=== PATIENT | male | born 1955 | race Caucasian/White ===

== ENCOUNTER 2016-04-18 10:57 | Outpatient (CLI) | payer BC | END 2016-04-18 10:58 | disposition home or self-care (01) | DX: M51.16 Intervertebral disc disorders with radiculopathy, lumbar region (principal); M51.17 Intervertebral disc disorders with radiculopathy, lumbosacral region; M48.06 Spinal stenosis, lumbar region ==

== ENCOUNTER 2016-05-16 08:00 | Outpatient (CLI) | payer BC | END 2016-05-16 08:01 | disposition home or self-care (01) | DX: E78.5 Hyperlipidemia, unspecified (principal); E11.9 Type 2 diabetes mellitus without complications; I10 Essential (primary) hypertension; R74.8 Abnormal levels of other serum enzymes ==

== ENCOUNTER 2016-06-26 07:23 | Outpatient (CLI) | payer BC | END 2016-06-26 07:24 | disposition home or self-care (01) | DX: E78.5 Hyperlipidemia, unspecified (principal); E11.9 Type 2 diabetes mellitus without complications; I10 Essential (primary) hypertension; R74.8 Abnormal levels of other serum enzymes ==

== ENCOUNTER 2017-10-29 07:29 | Outpatient (CLI) | payer BC ==
[2017-10-29 11:35] LABS: ALBUMIN 4.6 g/dL (3.2-5.5); ALBUMIN/GLOBULIN RATIO 1.6 (1.0-2.2); ALKALINE PHOSPHATASE 54 IU/L (42-121); ALT ALANINE AMINOTRANSFERASE 24 IU/L (10-60); AST ASPARTATE AMINOTRANSFERASE 25 IU/L (10-42); BILIRUBIN,TOTAL 1.1 mg/dL (0.2-1.0); BUN - BLOOD UREA NITROGEN 25 mg/dL (6-20); CALCIUM 9.5 mg/dL (8.5-10.3); CARBON DIOXIDE - CO2 24 mmol/L (21-32); CHLORIDE 106 mmol/L (101-111); CHOL/HDL RATIO 4.9 (<5.0); CHOLESTEROL 191 mg/dL; CREATININE 1.1 mg/dL (0.6-1.2); GFR - MDRD 68 (>89); GLUCOSE 136 mg/dL (70-100); HDL CHOLESTEROL 39 mg/dL; HGB - HEMOGLOBIN 13.9 g/dL (14.0-18.0); LDL CHOLESTEROL,CALCULATED 124 mg/dL; LDL/HDL RATIO 3.2 (<3.6); MEAN CORPUSCULAR HEMOGLOBIN 32.7 pg (27.0-31.0); MEAN CORPUSCULAR HGB CONC 34.1 g/dL (32.0-36.0); MEAN PLATELET VOLUME 9.5 fL (7.4-11.4); RED BLOOD COUNT 4.24 10^6/uL (4.70-6.10); RED CELL DISTRIBUTION WIDTH 13.1 % (12.0-15.0); SODIUM 138 mmol/L (135-145); TOTAL PROTEIN 7.4 g/dL (6.7-8.2); VLDL CHOLESTEROL 28 mg/dL; WHITE BLOOD COUNT 5.1 x10^3/uL (4.8-10.8)
[2017-10-29 11:49] LABS: HB2 TOTAL 14.8 g/dL; HEMOGLOBIN A1C 0.65 g/dL; HEMOGLOBIN A1C % 6.2 % (4.6-6.2)
== END 2017-10-29 07:30 | disposition home or self-care (01) ==
LOC: LAB.F 07:29
PROVIDERS: ATTEND Family Medicine
DX: E78.5 Hyperlipidemia, unspecified (principal); E11.9 Type 2 diabetes mellitus without complications; I10 Essential (primary) hypertension; R74.8 Abnormal levels of other serum enzymes; R60.9 Edema, unspecified
CPT/HCPCS: 36415; 80053; 80061; 82043; 83036; 83721; 85025; 85027

== ENCOUNTER 2017-11-10 19:17 | Outpatient (CLI) | payer BC, OTHER ==
--- NOTE | 2017-11-11 14:13 | Ultrasound Report ---
Procedure Date: 11/10/2017 Accession Number: [id number] / [id number] Procedure: US - Duplex Ext Veins Bilateral CPT Code: FULL RESULT: EXAM: BILATERAL LOWER EXTREMITY VENOUS ULTRASOUND EXAM DATE: 11/10/2017 07:43 PM. CLINICAL HISTORY: Edema. COMPARISON: None. TECHNIQUE: Real-time sonographic vascular imaging was performed by the per diem rn through the lower extremities utilizing both color-flow and Doppler spectral analysis. Multiple claims customer service representative static images were saved for review. FINDINGS: Right: Common Femoral Vein (CFV): Normal. CFV-GSV Junction: Normal. Profunda Femoral Vein (PFV): Normal. Femoral Vein (FV) Prox: Normal. Femoral Vein (FV) Mid: Normal. Femoral Vein (FV) Dist: Normal. Popliteal Vein: Normal. Posterior Tibial Veins: Normal. Peroneal Veins: Not seen. Left: Common Femoral Vein (CFV): Normal. CFV-GSV Junction: Normal. Profunda Femoral Vein (PFV): Normal. Femoral Vein (FV) Prox: Normal. Femoral Vein (FV) Mid: Normal. Femoral Vein (FV) Dist: Normal. Popliteal Vein: Normal. Posterior Tibial Veins: Not well-seen. Peroneal Veins: Not seen. Other: In the posteromedial left knee, there is a hypoechoic collection measuring 2.4 x 1.7 x 0.8 cm. No soft tissue component, vascular component or significant debris. IMPRESSION: 1. Suboptimal visualization of bilateral peroneal and left posterior tibial veins. 2. Given the limitations, no evidence for deep venous thrombosis. RADIA
== END 2017-11-10 19:18 | disposition home or self-care (01) ==
LOC: DI 19:17
PROVIDERS: ATTEND Internal Medicine
DX: R60.0 Localized edema (principal)
CPT/HCPCS: 93970

== ENCOUNTER 2019-01-01 18:50 | Inpatient (IN) | payer BC ==
[2019-01-01] MEDS ORDERED: IPRATROPIUM/ALBUTEROL 3 ML NEB INH STA (19:29)
[2019-01-01 19:46] LABS: BASOPHILS % (AUTO) 0.3 %; EOSINOPHILS # (AUTO) 0.1 10^3/uL (0.0-0.7); EOSINOPHILS % (AUTO) 0.4 %; HGB - HEMOGLOBIN 14.2 g/dL (14.0-18.0); LYMPHOCYTES # (AUTO) 0.3 10^3/uL (1.5-3.5); LYMPHOCYTES % (AUTO) 2.7 %; MEAN CORPUSCULAR HEMOGLOBIN 32.3 pg (27.0-31.0); MEAN CORPUSCULAR HGB CONC 33.8 g/dL (32.0-36.0); MEAN CORPUSCULAR VOLUME 95.7 fL (80.0-94.0); MEAN PLATELET VOLUME 9.8 fL (7.4-11.4); MONOCYTES # (AUTO) 0.4 10^3/uL (0.0-1.0); MONOCYTES % (AUTO) 3.8 %; NEUTROPHILS # (AUTO) 10.5 10^3/uL (1.5-6.6); NEUTROPHILS % (AUTO) 92.4 %; PLT - PLATELET COUNT 179 10^3/uL (130-450); RED BLOOD COUNT 4.39 10^6/uL (4.70-6.10); RED CELL DISTRIBUTION WIDTH 12.8 % (12.0-15.0); WHITE BLOOD COUNT 11.4 x10^3/uL (4.8-10.8)
[2019-01-01 19:50] LABS: ALBUMIN 4.8 g/dL (3.2-5.5); ALBUMIN/GLOBULIN RATIO 1.5 (1.0-2.2); BILIRUBIN,TOTAL 0.7 mg/dL (0.2-1.0); CALCIUM 9.5 mg/dL (8.5-10.3); CREATININE 1.1 mg/dL (0.6-1.2); INR 1.2 (0.8-1.2); PT - PROTHROMBIN TIME 13.9 secs (9.9-12.6); TOTAL PROTEIN 7.9 g/dL (6.7-8.2)
[2019-01-01 19:57] LABS: PARTIAL THROMBOPLASTIN TIME 28.3 secs (24.9-33.3)
[2019-01-01 20:07] LABS: BILIRUBIN,URINE NEGATIVE (NEGATIVE); GLUCOSE, URINE (UA) NEGATIVE (NEGATIVE); KETONES,URINE (UA) 15 mg/dL (NEGATIVE); LEUKOCYTE ESTERASE, URINE NEGATIVE (NEGATIVE); NITRITE,URINE NEGATIVE (NEGATIVE); OCCULT BLOOD,URINE TRACE-INTA (NEGATIVE); PH,URINE 5.5 PH (5.0-7.5); PROTEIN,URINE TRACE mg/dL (NEGATIVE); UROBILINOGEN,URINE 0.2 (NORMAL) E.U./dL (NORMAL)
[2019-01-01 20:11] LABS: CLARITY,URINE CLEAR (CLEAR)
[2019-01-01] MEDS: SODIUM CHLORIDE 0.9% 1,000 ML IV ONE ×2 (20:40→23:30)
[2019-01-01] MEDS ORDERED: BUFFERED LIDOCAINE 10 ML SYRINGE SUBQ STA (20:41)
[2019-01-01] MEDS ORDERED: KETOROLAC 30 MG/ML VIAL IVP STA (20:41)
[2019-01-01] MEDS ORDERED: VANCOMYCIN INJ 1 GM in SODIUM CHLORIDE 0.9% 500 ML IV STA (21:30)
--- NOTE | 2019-01-01 21:35 | ED Physician Documentation ---
History of Present Illness - Stated complaint Stated Complaint: SOA, FEVER, LT FOOT SWOLLEN - Chief complaint Chief Complaint: Fever - History obtained from History obtained from: Patient, Family - History of Present Illness Timing: How many days ago (4) - Additonal information Additional information: 4 days ago the patient stepped on broken glass and has had some swelling and pain in the left heal since. Today he developed fever and chills and weakness. He has a history of Parkinson's and has recently adjusted his medications. He felt ill with this and developed a fever and shaking chills. Review of Systems Constitutional: reports: Fever, Chills, Myalgias, Fatigue, Sweats Eyes: denies: Decreased vision Ears: denies: Ear pain Nose: denies: Rhinorrhea / runny nose, Congestion Throat: denies: Sore throat Cardiac: denies: Chest pain / pressure, Palpitations Respiratory: reports: Dyspnea. denies: Cough GI: denies: Abdominal Pain, Nausea, Vomiting : denies: Dysuria, Frequency Skin: denies: Rash Musculoskeletal: reports: Extremity pain, Extremity swelling, Pain with weight bearing. denies: Neck pain, Back pain Neurologic: reports: Generalized weakness. denies: Focal weakness, Numbness PD PAST MEDICAL HISTORY - Past Medical History Past Medical History: Yes Cardiovascular: None Respiratory: Other Neuro: Parkinson's Endocrine/Autoimmune: None GI: None : None, Incontinence Psych: None Musculoskeletal: None Derm: Eczema Other Past Medical History: hx of agent orange exposure - Past Surgical History Past Surgical History: Yes Ortho: Hip replacement - Present Medications Home Medications: Ambulatory Orders Medication Instructions Recorded Confirmed Celecoxib [Celebrex] 200 mg PO DAILY 01/01/19 01/01/19 Mirabegron [Myrbetriq] 50 mg PO DAILY 01/01/19 01/01/19 Ropinirole HCl 6 mg PO TID 01/01/19 01/01/19 Vardenafil HCl 20 mg PO PRN PRN 01/01/19 01/01/19 - Allergies Allergies/Adverse Reactions: Allergies Allergy/AdvReac Type Severity Reaction Status Date / Time Sulfa (Sulfonamide Allergy Unknown Verified 01/01/19 19:02 Antibiotics) - Social History Does the pt smoke?: No Smoking Status: Never smoker Does the pt drink ETOH?: Yes Does the pt have substance abuse?: No - Immunizations Immunizations are current?: No - POLST Patient has POLST: No PD ED PE NORMAL - Vitals Vital signs reviewed: Yes - General General: Alert and oriented X 3, Well developed/nourished, Other (flush appearing male with tremor of parkinson's is interactive and complains of feeling weak. ) - HEENT HEENT: Atraumatic, PERRL, EOMI - Neck Neck: Supple, no meningeal sign, No bony TTP - Cardiac Cardiac: No murmur, Other (tachy to 110) - Respiratory Respiratory: No respiratory distress, Clear bilaterally - Abdomen Abdomen: Soft, Non tender - Back Back: No CVA TTP, No spinal TTP - Derm Derm: Normal color, Warm and dry, No rash - Extremities Extremities: No deformity, Other (There is brawny skin to the lower ext bilat without edema. There is a thick callus to the left heal medially and there is the beginning of a lymphangitic streak. There is no fluctuance. 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, No motor deficit, No sensory deficit, Normal speech Eye Opening: Spontaneous Motor: Obeys Commands Verbal: Oriented GCS Score: 15 - Psych Psych: Normal mood, Normal affect Results - Vitals Vitals: Vital Signs - 24 hr 01/01/19 01/01/19 01/01/19 18:56 19:32 19:42 Temperature 39.5 C H Heart Rate 113 H 110 H 108 H Respiratory 16 26 H 23 Rate Blood Pressure 149/77 H O2 Saturation 93 01/01/19 01/01/19 01/01/19 20:02 20:32 21:02 Temperature Heart Rate 114 H 112 H 106 H Respiratory 29 H 23 30 H Rate Blood Pressure 186/170 H 143/66 H 148/65 H O2 Saturation 96 100 100 01/01/19 01/01/19 01/01/19 21:30 22:00 22:36 Temperature 39.3 C H Heart Rate 112 H 108 H 108 H Respiratory 24 26 H 23 Rate Blood Pressure 119/72 106/52 L O2 Saturation 92 93 93 01/01/19 01/01/19 01/01/19 23:00 23:17 23:30 Temperature 37.6 C H Heart Rate 93 101 H Respiratory 24 23 Rate Blood Pressure 81/51 L 82/51 L 96/59 L O2 Saturation 93 94 Oxygen O2 Source Room air - Labs Labs: Laboratory Tests 01/01/19 01/01/19 01/01/19 19:32 19:32 19:32 WBC 11.4 H RBC 4.39 L Hgb 14.2 Hct 42.0 MCV 95.7 H MCH 32.3 H MCHC 33.8 RDW 12.8 Plt Count 179 MPV 9.8 Neut # (Auto) 10.5 H Lymph # (Auto) 0.3 L [place] # (Auto) 0.4 Eos # (Auto) 0.1 Baso # (Auto) 0.0 Absolute Nucleated RBC 0.00 Nucleated RBC % 0.0 PT 13.9 H INR 1.2 APTT 28.3 Sodium 139 Potassium 3.5 Chloride 105 Carbon Dioxide 25 Anion Gap 9.0 BUN 20 Creatinine 1.1 Estimated GFR (MDRD) 67 L Glucose 134 H Lactic Acid Calcium 9.5 Total Bilirubin 0.7 AST 28 ALT 25 Alkaline Phosphatase 64 Total Protein 7.9 Albumin 4.8 Globulin 3.1 Albumin/Globulin Ratio 1.5 Lipase 30 Urine Color Urine Clarity Urine pH Ur Specific [place] Urine Protein Urine Glucose (UA) Urine Ketones Urine Occult Blood Urine Nitrite Urine Bilirubin Urine Urobilinogen Ur Leukocyte Esterase Ur Microscopic Review Urine Culture Comments 01/01/19 01/01/19 19:32 19:50 WBC RBC Hgb Hct MCV MCH MCHC RDW Plt Count MPV Neut # (Auto) Lymph # (Auto) [place] # (Auto) Eos # (Auto) Baso # (Auto) Absolute Nucleated RBC Nucleated RBC % PT INR APTT Sodium Potassium Chloride Carbon Dioxide Anion Gap BUN Creatinine Estimated GFR (MDRD) Glucose Lactic Acid 1.2 Calcium Total Bilirubin AST ALT Alkaline Phosphatase Total Protein Albumin Globulin Albumin/Globulin Ratio Lipase Urine Color YELLOW Urine Clarity CLEAR Urine pH 5.5 Ur Specific [place] 1.025 Urine Protein TRACE Urine Glucose (UA) NEGATIVE Urine Ketones 15 H Urine Occult Blood TRACE-INTA Urine Nitrite NEGATIVE Urine Bilirubin NEGATIVE Urine Urobilinogen 0.2 (NORMAL) Ur Leukocyte Esterase NEGATIVE Ur Microscopic Review NOT INDICATED Urine Culture Comments NOT INDICATED - Rads (name of study) chest Radiology: Prelim report reviewed (Impression: Mild pulmonary vascular congestion and mild enlargement of the cardiac silhouette. Otherwise no evidence of acute chest abnormality), EMP read indepedently, See rad report Procedures - FB removal FB location: Subcutaneous, Other (left foot) FB removal preparation: Local anesthesia-specify (lidocaine 1%) Removal method: Irrigated/flushed, Incision FB removal aftercare: No complications, Patient tolerated well, Removed successfully (A tiny piece of glass is removed. The area is probed with an 18 gauge needle deeply without pus being located.) - IVC sono (time) 2019 Bedside IVC sono: IVC measures (cm) (1.3), Dehydration (est 1 liter deficit) PD MEDICAL DECISION MAKING - ED course Complexity details: reviewed results, re-evaluated patient, considered differential, d/w patient, d/w family ED course: 63-year-old male with a history of Parkinson's has had an embedded piece of glass in his foot but now appears infected. The patient has shaking chills and fever arrives to the emergency department febrile with tachycardia and blood cultures are obtained the piece of glass is removed from the patient's foot no pus is found in the area. The patient is administered intravenous vancomycin a nd he continues to have some tachycardia despite volume replenishment and his blood pressure tends down. My initial plan was removal of the foreign body and outpatient antibiotics. When his pressure trended down significant concern for sepsis is present and admission to the hospital is prudent. Departure - Departure Disposition: 65 [facility] DC/Xfer Clinical Impression: Septicemia
[2019-01-01] MEDS ORDERED: ACETAMINOPHEN 325 MG TABLET PO STA (21:50)
--- NOTE | 2019-01-02 00:42 | XRAY Report ---
Reason: chest pain Procedure Date: 01/02/2019 Accession Number: [id number] / [id number] Procedure: XR - Chest 1 View X-Ray CPT Code: 08411 FULL RESULT: EXAM: CHEST RADIOGRAPHY EXAM DATE: 01/02/2019 12:34 AM. CLINICAL HISTORY: Chest pain. COMPARISON: None. TECHNIQUE: 1 view. 2 images. FINDINGS: Lungs/Pleura: Mild central pulmonary vascular congestion. No pulmonary edema. No focal opacities evident. No pleural effusion. No pneumothorax. Mediastinum: Mild enlargement of cardiac silhouette. Other: None. IMPRESSION: Mild pulmonary vascular congestion and mild enlargement of cardiac silhouette. Otherwise no evidence of acute chest abnormality. RADIA
[2019-01-02] MEDS ORDERED: BACITRACIN ZINC OINT 14 GM TOP STA (00:43)
[2019-01-02] MEDS ORDERED: BACITRACIN ZINC OINT 14 GM TOP ONE (00:48)
--- NOTE | 2019-01-02 00:57 | HISTORY & PHYSICAL EXAMINATION ---
Chief Complaint - Chief Complaint Chief Complaint: left foot/heel pain History of Present Illness - Admitted From Admitted From:: [facility] - History Obtained From Records Reviewed: yes History obtained from: patient - History of Present Illness HPI Comment/Other: Patient seen on 01/02/19 around 01:00am Patient is a 63 y/o male who presented to the Ed with complain of increasing pain in his left heel. He was at a wedding and had to leave and come to the ED because of the pain. 4 days ago he stepped on broken glass. Initially it was painful but then the site closed over, his pain subsided and he did not look into it any further until his presentation today. The site was explored in the ED for any potential abscess and non was found. However a piece of glass was removed. The patient was given a dose of vancomycin after blood cultures were d rawn. He was in the process of being discharge with oral antibiotics when his SBP dropped to the 80's. He was tachycardic, mildly febrile and had a WBC of 11.4. As a result he was presented for admission for concern of septicemia. He denies chest pain, JEWELS, abd pain, nausea or vomiting. He has Parkinson's and the resting tremor associated with it. 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 History - Past Medical History Cardiovascular: reports: None Respiratory: reports: Other Neuro: reports: Parkinson's Endocrine/Autoimmune: reports: None GI: reports: None : reports: None, Incontinence Psych: reports: None Musculoskeletal: reports: None Derm: reports: Eczema MRSA Hx?: Yes Other Past Medical History: hx of agent orange exposure - Past Surgical History Ortho: reports: Hip replacement - Family & Social History Family History: Brother: , Cancer (lymphoma) Family History Comment/Other: Parents are alive and in their 90's Living arrangement: At home Living Situation: With spouse/s.o. Social History Notes: He drinks occasional. He denies tobacco or illicit drug use - POLST Patient has POLST: No POLST Status: Full Code Meds/Allgy - Home Medications Home Medications: Ambulatory Orders Medication Instructions Recorded Confirmed Celecoxib [Celebrex] 200 mg PO DAILY 01/01/19 01/01/19 Mirabegron [Myrbetriq] 50 mg PO DAILY 01/01/19 01/01/19 Ropinirole HCl 6 mg PO TID 10/12/19 10/12/19 Vardenafil HCl 20 mg PO PRN PRN 01/01/19 01/01/19 - Allergies Allergies/Adverse Reactions: Allergies Allergy/AdvReac Type Severity Reaction Status Date / Time Sulfa (Sulfonamide Allergy Unknown Verified 01/01/19 19:02 Antibiotics) Review of Systems - Constitutional Constitutional: reports: Fever - Eyes Eyes: denies: Amaurosis, Blurred vision, Vision loss, Dipolpia - Ears, Nose & Throat Ears, Nose & Throat: denies: Nasal pain, Sore throat - Cardiovascular Cariovascular: reports: Palpitations. denies: Irregular heart rate, Chest pain, Edema, Lightheadedness, Syncope - Respiratory Respiratory: denies: Cough, Sputum production, Wheezing, SOB at rest, SOB with exertion - Gastrointestinal Gastrointestinal: denies: Abdominal pain, Abdominal distention, Constipation, Diarrhea, Black stools, Nausea, Vomiting, Coffee grounds emesis, Reflux/heartburn - Genitourinary Genitourinary: reports: Incontinence. denies: Dysuria, Frequency, Urgency, Hematuria, Flank pain - Musculoskeletal Musculoskeletal: denies: Muscle pain, Back pain, Muscle aches, Stiffness - Integumentary Integumentary: denies: Rash, Pruritis - Neurological Neurological: reports: Other (resting tremor due to Parkinson's). denies: General weakness, Focal weakness - Psychiatric Psychiatric: denies: Depression, Anxiety - Endocrine Endocrine: denies: Polyuria, Polydypsia - Hematologic/Lymphatic Hematologic/Lymphatic: denies: Anemia, Bruising Prior Level of Functionality: Patient is independent of activities of daily living Exam - Vital Signs Vital Signs: Vital Signs x48h Temp Pulse Resp BP Pulse Ox 01/01/19 23:30 37.6 C H 101 H 23 96/59 L 94 01/01/19 23:17 82/51 L 01/01/19 23:00 93 24 81/51 L 93 01/01/19 22:36 108 H 23 106/52 L 93 01/01/19 22:00 108 H 26 H 93 01/01/19 21:30 39.3 C H 112 H 24 119/72 92 01/01/19 21:02 106 H 30 H 148/65 H 100 01/01/19 20:32 112 H 23 143/66 H 100 01/01/19 20:02 114 H 29 H 186/170 H 96 01/01/19 19:42 108 H 23 01/01/19 19:32 110 H 26 H 01/01/19 18:56 39.5 C H 113 H 16 149/77 H 93 - Physical Exam General Appearance: positive: Moderate distress. negative: Alert, Lethargic Eyes Bilateral: positive: PERRL, EOMI ENT: positive: ENT inspection nml, Pharynx nml Neck: positive: Nml inspection, No JVD, Trachea midline Respiratory: positive: Chest non-tender, No respiratory distress, Breath sounds nml. negative: Wheezes, Rales, Rhonchi Cardiovascular: positive: Tachycardia. negative: No murmur, No gallop Abdomen: positive: Non-tender, No organomegaly, Nml bowel sounds, No distention. negative: Guarding, Rebound Back: positive: Nml inspection Skin: positive: Color nml, Warm Extremities: positive: Pedal edema, Other (pain on heel of left foot with puncture site) Neurologic/Psychiatric: positive: Oriented x3, CN's nml (2-12), Motor nml, Sensation nml, Mood/affect nml, Other (resting tremor of Parkinson's Disease) Sepsis Event Note (H) - Evaluation Current Stage of Sepsis: Sepsis Possible source of Sepsis: positive: Skin/soft tissue - Sepsis Criteria Sepsis Criteria: Suspected or Documented, Recorded Heart Rate greater than 90 bpm, SBP less than 90 mmHg Conclusion/Plan - Problem List (1) Sepsis Conclusion/Plan: Likely site/source is puncture wound on left heel. Vancomycin started in the ED. Pharmacy to dose. 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 IV hydration with normal saline Tylenol for fever (2) Overactive bladder Conclusion/Plan: On myrbetriq (3) Parkinson disease Conclusion/Plan: On requip tid - Lab Results Fish Bones: 01/01/19 19:32 01/01/19 19:32
[2019-01-02] MEDS ORDERED: SODIUM CHLORIDE 0.9% 1,000 ML IV SCH ×2 (01:00→23:45)
[2019-01-02] MEDS ORDERED: VANCOMYCIN PER PHARMACY 100 GM in SODIUM CHLORIDE 0.9% 250 ML IV SCH (01:00)
[2019-01-02] MEDS: SODIUM CHLORIDE FLUSH 0.9% 10 ML SYRINGE IVP SCH ×3 (01:37→17:06)
[2019-01-02] MEDS: PIPERACILLIN/TAZOBACTAM 3.375 GM in SODIUM CHLORIDE 0.9% MINIBAG 100 ML IV SCH ×4 (01:37→20:59)
[2019-01-02] MEDS ORDERED: VANCOMYCIN INJ 1.5 GM in SODIUM CHLORIDE 0.9% 500 ML IV SCH (05:00)
[2019-01-02 05:45] LABS: BASOPHILS # (AUTO) 0.1 10^3/uL (0.0-0.1); BASOPHILS % (AUTO) 0.3 %; EOSINOPHILS % (AUTO) 0.1 %; HGB - HEMOGLOBIN 12.5 g/dL (14.0-18.0); LYMPHOCYTES # (AUTO) 0.2 10^3/uL (1.5-3.5); LYMPHOCYTES % (AUTO) 1.6 %; MEAN CORPUSCULAR HEMOGLOBIN 32.7 pg (27.0-31.0); MEAN CORPUSCULAR HGB CONC 33.5 g/dL (32.0-36.0); MEAN CORPUSCULAR VOLUME 97.6 fL (80.0-94.0); MEAN PLATELET VOLUME 10.3 fL (7.4-11.4); MONOCYTES # (AUTO) 0.3 10^3/uL (0.0-1.0); NEUTROPHILS # (AUTO) 14.7 10^3/uL (1.5-6.6); PLT - PLATELET COUNT 157 10^3/uL (130-450); RED BLOOD COUNT 3.82 10^6/uL (4.70-6.10); RED CELL DISTRIBUTION WIDTH 13.2 % (12.0-15.0); WHITE BLOOD COUNT 15.4 x10^3/uL (4.8-10.8)
[2019-01-02 05:59] LABS: CALCIUM 8.7 mg/dL (8.5-10.3); CREATININE 1.6 mg/dL (0.6-1.2)
[2019-01-02] MEDS ORDERED: rOPINIRole 1 MG TABLET PO SCH (06:00)
[2019-01-02] MEDS: SODIUM CHLORIDE FLUSH 0.9% 10 ML SYRINGE IVP PRN (06:02)
[2019-01-02] MEDS: rOPINIRole 1 MG TABLET PO SCH ×3 (06:02→21:59)
[2019-01-02] MEDS ORDERED: SODIUM CHLORIDE 0.9% 1,000 ML IV ONE (06:11)
[2019-01-02] MEDS: SODIUM CHLORIDE 0.9% 1,000 ML IV SCH ×3 (08:34→21:00)
[2019-01-02] MEDS ORDERED: CELECOXIB 100 MG CAPSULE PO SCH (09:00)
[2019-01-02] MEDS: POLYETHYLENE GLYCOL 3350 17 GM PACKET PO SCH (09:46)
[2019-01-02] MEDS: CELECOXIB 100 MG CAPSULE PO SCH (09:46)
[2019-01-02] MEDS: ENOXAPARIN 40 MG/0.4 ML SYRINGE SUBQ SCH (09:46)
[2019-01-02] MEDS: ACETAMINOPHEN 325 MG TABLET PO PRN ×2 (13:35→21:58)
[2019-01-02] MEDS: VANCOMYCIN INJ 1 GM, VANCOMYCIN INJ 250 MG in SODIUM CHLORIDE 0.9% 250 ML IV SCH (18:35)
[2019-01-03] MEDS: SODIUM CHLORIDE FLUSH 0.9% 10 ML SYRINGE IVP SCH ×3 (00:38→17:10)
--- NOTE | 2019-01-03 01:29 | XRAY Report ---
Reason: wheezing Procedure Date: 01/03/2019 Accession Number: [id number] / [id number] Procedure: XR - Chest 1 View X-Ray CPT Code: 10871 FULL RESULT: EXAM: CHEST RADIOGRAPHY EXAM DATE: 01/03/2019 01:05 AM. CLINICAL HISTORY: Wheezing. Productive cough. COMPARISON: CHEST 1 VIEW 01/02/2019 12:18 AM. TECHNIQUE: 1 view. FINDINGS: Lungs/Pleura: Pulmonary vascular congestion. No alveolar consolidation or pleural effusion seen. No pneumothorax. Mediastinum: Within exam limitations, heart is mildly enlarged. Other: None. IMPRESSION: 1. Cardiomegaly and pulmonary vascular congestion. RADIA
[2019-01-03] MEDS: PIPERACILLIN/TAZOBACTAM 3.375 GM in SODIUM CHLORIDE 0.9% MINIBAG 100 ML IV SCH ×4 (02:00→20:04)
[2019-01-03] MEDS ORDERED: FUROSEMIDE 20 MG/2 ML VIAL IVP STA (04:41)
[2019-01-03] MEDS: VANCOMYCIN INJ 1 GM, VANCOMYCIN INJ 250 MG in SODIUM CHLORIDE 0.9% 250 ML IV SCH (05:17)
[2019-01-03 05:58] LABS: BASOPHILS % (AUTO) 0.1 %; HGB - HEMOGLOBIN 11.8 g/dL (14.0-18.0); LYMPHOCYTES # (AUTO) 0.3 10^3/uL (1.5-3.5); MEAN CORPUSCULAR HEMOGLOBIN 32.2 pg (27.0-31.0); MEAN CORPUSCULAR HGB CONC 33.1 g/dL (32.0-36.0); MEAN CORPUSCULAR VOLUME 97.5 fL (80.0-94.0); MEAN PLATELET VOLUME 10.8 fL (7.4-11.4); MONOCYTES # (AUTO) 0.3 10^3/uL (0.0-1.0); MONOCYTES % (AUTO) 3.1 %; NEUTROPHILS # (AUTO) 9.1 10^3/uL (1.5-6.6); NEUTROPHILS % (AUTO) 92.6 %; PLT - PLATELET COUNT 132 10^3/uL (130-450); RED BLOOD COUNT 3.66 10^6/uL (4.70-6.10); RED CELL DISTRIBUTION WIDTH 13.6 % (12.0-15.0); WHITE BLOOD COUNT 9.9 x10^3/uL (4.8-10.8)
[2019-01-03 06:05] LABS: CALCIUM 8.3 mg/dL (8.5-10.3); CREATININE 1.2 mg/dL (0.6-1.2)
[2019-01-03] MEDS ORDERED: POTASSIUM CHLORIDE 20 MEQ TABLET PO ONE (06:11)
[2019-01-03] MEDS: ACETAMINOPHEN 325 MG TABLET PO PRN ×2 (07:56→22:59)
[2019-01-03] MEDS ORDERED: VANCOMYCIN IV SCH ×2 (08:37→18:00)
[2019-01-03] MEDS ORDERED: SODIUM CHLORIDE 0.9% IV SCH ×2 (08:37→18:00)
[2019-01-03] MEDS: POLYETHYLENE GLYCOL 3350 17 GM PACKET PO SCH (08:45)
[2019-01-03] MEDS: ENOXAPARIN 40 MG/0.4 ML SYRINGE SUBQ SCH (08:46)
[2019-01-03] MEDS: rOPINIRole 1 MG TABLET PO SCH ×3 (08:46→21:52)
[2019-01-03] MEDS: SACCHAROMYCES BOULARDII 250 MG CAPSULE PO SCH ×2 (08:46→17:22)
[2019-01-03] MEDS: CELECOXIB 100 MG CAPSULE PO SCH (08:47)
[2019-01-03] MEDS: MIRABEGRON 50 MG PO SCH (08:47)
[2019-01-03] MEDS ORDERED: VARDENAFIL HCL 20 MG PO PRN (15:06)
[2019-01-03 17:36] LABS: VANCOMYCIN,TROUGH 7.7 ug/mL (10.0-20.0)
[2019-01-03] MEDS: VANCOMYCIN INJ 1.5 GM in SODIUM CHLORIDE 0.9% 500 ML IV SCH (18:34)
[2019-01-03] MEDS: SODIUM CHLORIDE FLUSH 0.9% 10 ML SYRINGE IVP PRN (20:04)
--- NOTE | 2019-01-03 21:52 | PROVIDER PROGRESS NOTE ---
Assessment/Plan - Problem List (1) Bacteremia due to group B Streptococcus Assessment/Plan: Awaiting final ID and sensitivities. Continue iv antibiotics Will order Echo to eval for endocarditis. (2) Puncture wound of left foot excluding toes with complication Qualifiers: Encounter type: initial encounter Qualified Code(s): S91.332A - Puncture wound without foreign body, left foot, initial encounter Assessment/Plan: Continue empiric iv antibiotics. He denies pain and says he can ambulate, walking on the toes of the L foot. (3) Parkinson disease Assessment/Plan: Continue his home meds (4) Overactive bladder Assessment/Plan: Continue his home meds (5) Hypokalemia Assessment/Plan: Replace K Follow BMP daily (6) Exophthalmos Assessment/Plan: I remarked to the patient that he has "bulging eyes" and that I recommend checking thyroid functions. TFTs ordered for the a.m. (7) Sepsis Assessment/Plan: Resolved - Current Meds Current Meds: Current Medications Generic Name Dose Route Start Last Admin Trade Name Freq PRN Reason Stop Dose Admin Acetaminophen 650 mg 01/02/19 00:50 01/03/19 07:56 Tylenol PO 650 mg Q4HR PRN Administration Pain 1 to 4 Celecoxib 200 mg 01/02/19 09:00 01/03/19 08:47 Celebrex PO 200 mg DAILY WALKER Administration Enoxaparin Sodium 40 mg 01/02/19 09:00 01/03/19 08:46 Lovenox SUBQ 40 mg DAILY WALKER Administration Piperacillin Sod/Tazobactam 100 mls @ 200 mls/hr 01/02/19 14:00 01/03/19 20:35 Sod 3.375 gm/ Sodium Chloride IV Infused Q6H WALKER Infusion Vancomycin HCl 1.5 gm/ Sodium 500 mls @ 250 mls/hr 01/03/19 18:30 01/03/19 20:35 Chloride IV Infused Q12H WALKER Infusion Patient Own Med ( 1 each 01/03/19 09:00 01/03/19 08:47 Mirabegron [ PO 1 each Myrbetriq] 50 Mg) DAILY WALKER Administration Polyethylene Glycol 17 gm 01/02/19 09:00 01/03/19 08:45 Miralax PO 17 gm DAILY WALKER Administration Ropinirole HCl 6 mg 01/02/19 06:00 01/03/19 13:38 Requip PO 6 mg TID WALKER Administration Saccharomyces Boulardii 250 mg 01/03/19 08:00 01/03/19 17:22 Florastor PO 250 mg BIDWM WALKER Administration Sodium Chloride 10 ml 01/02/19 00:50 01/03/19 20:04 Normal Saline Flush 0.9% IVP 10 ml PRN PRN Administration NEEDED PER PROVIDER ORDERS Sodium Chloride 10 ml 01/02/19 01:00 01/03/19 17:10 Normal Saline Flush 0.9% IVP 10 ml 0100,0900,1700 WALKER Administration - Lab Result Fish Bone Diagrams: 01/04/19 05:24 01/04/19 05:24 - Additional Planning My Orders: My Active Orders 01/03/19 08:00 Saccharomyces Boulardii [Florastor] 250 mg PO BIDWM 01/03/19 09:00 Patient Own Med [Patient Own Medication] 1 each PO DAILY 01/04/19 05:00 T4 (THYROXINE) [IAI] DAILYLAB TSH [THYROID STIMULATING HORMONE] [IAI] DAILYLAB 01/05/19 08:00 Echo Transthoracic Complete [ECHO] Routine Subjective - Subjective Patient Reports: Feeling Better, Resting Comfortably Objective Vital Signs: Vital Signs - 24 hr 01/02/19 01/02/19 01/02/19 21:55 23:19 23:42 Temperature 38.7 C H 38.2 C H 37.5 C Heart Rate [ 94 84 Brachial] Respiratory 27 H 18 Rate Blood Pressure [Left Brachial artery] Blood Pressure 137/77 H 127/70 [Right Brachial artery] O2 Saturation 97 94 01/03/19 01/03/19 01/03/19 03:57 07:49 08:33 Temperature 37.8 C H 39.3 C H 38.2 C H Heart Rate [ 89 84 Brachial] Respiratory 18 18 Rate Blood Pressure [Left Brachial artery] Blood Pressure 126/63 143/72 H [Right Brachial artery] O2 Saturation 92 94 01/03/19 01/03/19 01/03/19 09:02 10:10 11:22 Temperature 37.7 C H 36.6 C 37.0 C Heart Rate [ 73 Brachial] Respiratory 18 Rate Blood Pressure [Left Brachial artery] Blood Pressure 122/63 [Right Brachial artery] O2 Saturation 95 01/03/19 16:00 Temperature 37.0 C Heart Rate [ 65 Brachial] Respiratory 16 Rate Blood Pressure 133/80 H [Left Brachial artery] Blood Pressure [Right Brachial artery] O2 Saturation 100 Oxygen O2 Source Room air I&O (Last 24 Hrs): Intake and Output Totals x24h 01/01/19 01/02/19 01/03/19 23:59 23:59 23:59 Intake Total 1500 5914.584 2450 Output Total 1295 1700 Balance 1500 4619.584 750 General: Alert, Oriented x3 HEENT: Other (Exophthalmous bilat) Neck: Supple, No JVD Neuro: Non Focal Cardiovascular: Regular rate, No murmurs Respiratory: No respiratory distress, Breath sounds nml Abdomen: Soft, Other (Obese) Extremities: No clubbing, No edema, Other (L heel bandaged) - Results Results: Laboratory Results WBC 9.9 x10^3/uL (4.8-10.8) 01/03/19 05:10 RBC 3.66 10^6/uL (4.70-6.10) L 01/03/19 05:10 Hgb 11.8 g/dL (14.0-18.0) L 01/03/19 05:10 Hct 35.7 % (42.0-52.0) L 01/03/19 05:10 MCV 97.5 fL (80.0-94.0) H 01/03/19 05:10 MCH 32.2 pg (27.0-31.0) H 01/03/19 05:10 MCHC 33.1 g/dL (32.0-36.0) 01/03/19 05:10 RDW 13.6 % (12.0-15.0) 01/03/19 05:10 Plt Count 132 10^3/uL (130-450) 01/03/19 05:10 MPV 10.8 fL (7.4-11.4) 01/03/19 05:10 Neut # (Auto) 9.1 10^3/uL (1.5-6.6) H 01/03/19 05:10 Lymph # (Auto) 0.3 10^3/uL (1.5-3.5) L 01/03/19 05:10 [place] # (Auto) 0.3 10^3/uL (0.0-1.0) 01/03/19 05:10 Eos # (Auto) 0.0 10^3/uL (0.0-0.7) 01/03/19 05:10 Baso # (Auto) 0.0 10^3/uL (0.0-0.1) 01/03/19 05:10 Absolute Nucleated RBC 0.00 x10^3/uL 01/03/19 05:10 Nucleated RBC % 0.0 /100WBC 01/03/19 05:10 PT 13.9 secs (9.9-12.6) H 01/01/19 19:32 INR 1.2 (0.8-1.2) 01/01/19 19:32 APTT 28.3 secs (24.9-33.3) 01/01/19 19:32 Sodium 138 mmol/L (135-145) 01/03/19 05:10 Potassium 3.3 mmol/L (3.5-5.0) L 01/03/19 05:10 Chloride 109 mmol/L (101-111) 01/03/19 05:10 Carbon Dioxide 21 mmol/L (21-32) 01/03/19 05:10 Anion Gap 8.0 (6-13) 01/03/19 05:10 BUN 18 mg/dL (6-20) 01/03/19 05:10 Creatinine 1.2 mg/dL (0.6-1.2) 01/03/19 05:10 Estimated GFR (MDRD) 61 (>89) L 01/03/19 05:10 Glucose 159 mg/dL (70-100) H 01/03/19 05:10 Lactic Acid 1.8 mmol/L (0.5-2.2) 01/02/19 06:35 Calcium 8.3 mg/dL (8.5-10.3) L 01/03/19 05:10 Total Bilirubin 0.7 mg/dL (0.2-1.0) 01/01/19 19:32 AST 28 IU/L (10-42) 01/01/19 19:32 ALT 25 IU/L (10-60) 01/01/19 19:32 Alkaline Phosphatase 64 IU/L (42-121) 01/01/19 19:32 Total Protein 7.9 g/dL (6.7-8.2) 01/01/19 19:32 Albumin 4.8 g/dL (3.2-5.5) 01/01/19 19:32 Globulin 3.1 g/dL (2.1-4.2) 01/01/19 19:32 Albumin/Globulin Ratio 1.5 (1.0-2.2) 01/01/19 19:32 Lipase 30 U/L (22-51) 01/01/19 19:32 Urine Color YELLOW 01/01/19 19:50 Urine Clarity CLEAR (CLEAR) 01/01/19 19:50 Urine pH 5.5 PH (5.0-7.5) 01/01/19 19:50 Ur Specific [place] 1.025 (1.002-1.030) 01/01/19 19:50 Urine Protein TRACE mg/dL (NEGATIVE) 01/01/19 19:50 Urine Glucose (UA) NEGATIVE mg/dL (NEGATIVE) 01/01/19 19:50 Urine Ketones 15 mg/dL (NEGATIVE) H 01/01/19 19:50 Urine Occult Blood TRACE-INTA (NEGATIVE) 01/01/19 19:50 Urine Nitrite NEGATIVE (NEGATIVE) 01/01/19 19:50 Urine Bilirubin NEGATIVE (NEGATIVE) 01/01/19 19:50 Urine Urobilinogen 0.2 (NORMAL) E.U./dL (NORMAL) 01/01/19 19:50 Ur Leukocyte Esterase NEGATIVE (NEGATIVE) 01/01/19 19:50 Ur Microscopic Review NOT INDICATED 01/01/19 19:50 Urine Culture Comments NOT INDICATED 01/01/19 19:50 Nasal Screen MRSA (PCR) NEGATIVE (NEGATIVE) 01/02/19 02:05 Last Dose Date UNKNOWN 01/03/19 17:22 Last Dose Time UNKNOWN 01/03/19 17:22 Vancomycin Trough 7.7 ug/mL (10.0-20.0) L 01/03/19 17:22 Sepsis Event Note (H) - Evaluation Current Stage of Sepsis: Sepsis Possible source of Sepsis: positive: Skin/soft tissue - Sepsis Criteria Sepsis Criteria: Suspected or Documented, Recorded Heart Rate greater than 90 bpm, SBP less than 90 mmHg
[2019-01-03] MEDS ORDERED: FUROSEMIDE 40 MG/4 ML VIAL IVP STA (22:01)
[2019-01-04] MEDS: PIPERACILLIN/TAZOBACTAM 3.375 GM in SODIUM CHLORIDE 0.9% MINIBAG 100 ML IV SCH ×4 (02:11→21:19)
[2019-01-04] MEDS: SODIUM CHLORIDE FLUSH 0.9% 10 ML SYRINGE IVP SCH ×3 (02:13→17:53)
[2019-01-04] MEDS: rOPINIRole 1 MG TABLET PO SCH ×6 (02:14→21:33)
[2019-01-04 05:46] LABS: BASOPHILS % (AUTO) 0.3 %; EOSINOPHILS % (AUTO) 0.3 %; HGB - HEMOGLOBIN 11.7 g/dL (14.0-18.0); LYMPHOCYTES # (AUTO) 0.5 10^3/uL (1.5-3.5); MEAN CORPUSCULAR HGB CONC 32.9 g/dL (32.0-36.0); MEAN CORPUSCULAR VOLUME 97.3 fL (80.0-94.0); MEAN PLATELET VOLUME 10.5 fL (7.4-11.4); MONOCYTES # (AUTO) 0.3 10^3/uL (0.0-1.0); MONOCYTES % (AUTO) 5.5 %; NEUTROPHILS # (AUTO) 5.1 10^3/uL (1.5-6.6); NEUTROPHILS % (AUTO) 85.4 %; PLT - PLATELET COUNT 136 10^3/uL (130-450); RED BLOOD COUNT 3.66 10^6/uL (4.70-6.10); RED CELL DISTRIBUTION WIDTH 13.4 % (12.0-15.0)
[2019-01-04 05:52] LABS: CALCIUM 8.5 mg/dL (8.5-10.3); CREATININE 1.1 mg/dL (0.6-1.2)
[2019-01-04 06:08] LABS: T4 (THYROXINE) 4.8 ug/dL (6.09-12.23)
[2019-01-04 06:12] LABS: THYROID STIMULATING HORMONE 2.12 uIU/mL (0.34-5.60)
[2019-01-04] MEDS: VANCOMYCIN INJ 1.5 GM in SODIUM CHLORIDE 0.9% 500 ML IV SCH ×2 (06:20→18:42)
[2019-01-04] MEDS ORDERED: POTASSIUM CHLORIDE 20 MEQ TABLET PO SCH (07:55)
[2019-01-04] MEDS: ENOXAPARIN 40 MG/0.4 ML SYRINGE SUBQ SCH (08:27)
[2019-01-04] MEDS: SACCHAROMYCES BOULARDII 250 MG CAPSULE PO SCH ×2 (08:27→17:53)
[2019-01-04] MEDS: CELECOXIB 100 MG CAPSULE PO SCH (08:27)
[2019-01-04] MEDS: MIRABEGRON 50 MG PO SCH (08:27)
[2019-01-04] MEDS: POLYETHYLENE GLYCOL 3350 17 GM PACKET PO SCH (08:29)
[2019-01-04] MEDS: SODIUM CHLORIDE FLUSH 0.9% 10 ML SYRINGE IVP PRN ×2 (13:34→18:49)
[2019-01-04] MEDS ORDERED: IOVERSOL 320 100 ML VIAL IVP ONE (15:02)
--- NOTE | 2019-01-04 15:39 | Ultrasound Report ---
Reason: swelling, erythema, tender, if DVT Procedure Date: 01/04/2019 Accession Number: [id number] / [id number] Procedure: US - Duplex Ext Veins Left CPT Code: FULL RESULT: EXAM: LEFT LOWER EXTREMITY VENOUS ULTRASOUND EXAM DATE: 01/04/2019 03:19 PM. CLINICAL HISTORY: Swelling. Erythema. Tender. Concern for DVT. COMPARISON: DUPLEX EXT VEINS BILATERAL 11/10/2017 7:22 PM. TECHNIQUE: Real-time sonographic vascular imaging was performed by the certified addiction counselor through the lower extremity utilizing both color-flow and Doppler spectral analysis. Multiple residential sales representative static images were saved for review. FINDINGS: Common Femoral Vein (CFV): Normal. CFV-GSV Junction: Normal. Profunda Femoral Vein (PFV): Normal. Femoral Vein (FV) Prox: Normal. Femoral Vein (FV) Mid: Normal. Femoral Vein (FV) Dist: Normal. Popliteal Vein: Normal. Posterior Tibial Veins: Normal. Peroneal Veins: Normal. Other: Prominent inguinal lymph nodes noted. IMPRESSION: No evidence for deep venous thrombosis. RADIA
--- NOTE | 2019-01-04 16:13 | PROVIDER PROGRESS NOTE ---
Assessment/Plan - Problem List (1) Sepsis Assessment/Plan: 01/04 continue swelling significantly with warmth. pt denies pain. pt had intact neurovascule examination at his left distal toes consult with Dr. Liriano for if pt has abscess, or other severe infection such as compartment syndrome or N/F. Dr. Liriano recommend MRI order US for abscess or DVT continue antibiotics Zosyn, will hold vancomycin according to sensitivity rise leg encourage pt walk Likely site/source is puncture wound on left heel. Vancomycin started in the ED. Pharmacy to dose. 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 IV hydration with normal saline Tylenol for fever (2) Overactive bladder Conclusion/Plan: 01/04 stable, continue myrbetriq On myrbetriq (3) Parkinson disease Conclusion/Plan: stable, continue Ropinirole (4) hx of bilateral venous stasis right side is as his normal status with mild to moderate erythema, left side is now swelling, warmth, erythema. dorsalis pedis pause is normal Rise left leg treat underline infection with antibiotics - Current Meds Current Meds: Current Medications Generic Name Dose Route Start Last Admin Trade Name Freq PRN Reason Stop Dose Admin Acetaminophen 650 mg 01/02/19 00:50 01/03/19 22:59 Tylenol PO 650 mg Q4HR PRN Administration Pain 1 to 4 Celecoxib 200 mg 01/02/19 09:00 01/04/19 08:27 Celebrex PO 200 mg DAILY [facility] Administration Enoxaparin Sodium 40 mg 01/02/19 09:00 01/04/19 08:27 Lovenox SUBQ 40 mg DAILY [facility] Administration Piperacillin Sod/Tazobactam 100 mls @ 200 mls/hr 01/02/19 14:00 01/04/19 14:04 Sod 3.375 gm/ Sodium Chloride IV Infused Q6H [facility] Infusion Vancomycin HCl 1.5 gm/ Sodium 500 mls @ 250 mls/hr 01/03/19 18:30 01/04/19 08:30 Chloride IV Infused Q12H [facility] Infusion Patient Own Med ( 1 each 01/03/19 09:00 01/04/19 08:27 Mirabegron [ PO 1 each Myrbetriq] 50 Mg) DAILY [facility] Administration Polyethylene Glycol 17 gm 01/02/19 09:00 01/04/19 08:29 Miralax PO Not Given DAILY [facility] Ropinirole HCl 3 mg 01/04/19 02:00 01/04/19 13:34 Requip PO 3 mg Q4H [facility] Administration Saccharomyces Boulardii 250 mg 01/03/19 08:00 01/04/19 08:27 Florastor PO 250 mg BIDWM [facility] Administration Sodium Chloride 10 ml 01/02/19 00:50 01/04/19 13:34 Normal Saline Flush 0.9% IVP 10 ml PRN PRN Administration NEEDED PER PROVIDER ORDERS Sodium Chloride 10 ml 01/02/19 01:00 01/04/19 08:29 Normal Saline Flush 0.9% IVP 10 ml 0100,0900,1700 [facility] Administration - Lab Result Fish Bone Diagrams: 01/05/19 06:20 01/05/19 06:20 - Additional Planning My Orders: My Active Orders 01/04/19 Orthopedics Consult [CONS] Routine 01/04/19 10:37 RT [Oxygen Therapy] [RC] .PRN 01/04/19 14:57 LOWER LEG (TIB-FIB) WO - LT [MRI] Stat 01/05/19 05:00 BMP - BASIC METABOLIC PANEL [CHEM] DAILYLAB CBC - COMP BLD CT W/AUTO DIFF [HEME] DAILYLAB 01/06/19 05:00 BMP - BASIC METABOLIC PANEL [CHEM] DAILYLAB CBC - COMP BLD CT W/AUTO DIFF [HEME] DAILYLAB 01/07/19 05:00 BMP - BASIC METABOLIC PANEL [CHEM] DAILYLAB CBC - COMP BLD CT W/AUTO DIFF [HEME] DAILYLAB 01/08/19 05:00 BMP - BASIC METABOLIC PANEL [CHEM] DAILYLAB CBC - COMP BLD CT W/AUTO DIFF [HEME] DAILYLAB 01/09/19 05:00 BMP - BASIC METABOLIC PANEL [CHEM] DAILYLAB CBC - COMP BLD CT W/AUTO DIFF [HEME] DAILYLAB Subjective - Subjective Patient Reports: Feeling Better Objective Vital Signs: Vital Signs - 24 hr 01/03/19 01/03/19 01/03/19 21:51 22:52 23:47 Temperature 37.1 C 39.3 C H 38.9 C H Heart Rate [ 88 97 90 Brachial] Respiratory 22 28 H 24 Rate Blood Pressure [Left Brachial artery] Blood Pressure 181/109 H 154/86 H 136/75 H [Right Brachial artery] O2 Saturation 91 L 95 93 01/04/19 01/04/19 01/04/19 03:00 05:19 08:21 Temperature 37.2 C 36.8 C 37.0 C Heart Rate [ 79 71 Brachial] Respiratory 24 20 Rate Blood Pressure 134/84 H [Left Brachial artery] Blood Pressure 164/95 H [Right Brachial artery] O2 Saturation 98 100 01/04/19 11:41 Temperature 36.9 C Heart Rate [ 69 Brachial] Respiratory 20 Rate Blood Pressure [Left Brachial artery] Blood Pressure 125/75 [Right Brachial artery] O2 Saturation 98 Oxygen O2 Source Nasal cannula I&O (Last 24 Hrs): Intake and Output Totals x24h 01/02/19 01/03/19 01/04/19 23:59 23:59 23:59 Intake Total 5914.584 2450 1480 Output Total 1295 2800 1075 Balance 4619.584 -350 405 General: Alert, Oriented x3, No acute distress HEENT: PERRLA Neck: Supple Lymphatic: no adenopathy Neuro: Alert, Non Focal, Oriented Times 3 Cardiovascular: Regular rate, No murmurs Respiratory: Chest non-tender, No respiratory distress Abdomen: Normal bowel sounds, No tenderness Extremities: Other (left lower extremity with sweling, erythema, and warmth) - Results Results: Laboratory Results WBC 6.0 x10^3/uL (4.8-10.8) 01/04/19 05:24 RBC 3.66 10^6/uL (4.70-6.10) L 01/04/19 05:24 Hgb 11.7 g/dL (14.0-18.0) L 01/04/19 05:24 Hct 35.6 % (42.0-52.0) L 01/04/19 05:24 MCV 97.3 fL (80.0-94.0) H 01/04/19 05:24 MCH 32.0 pg (27.0-31.0) H 01/04/19 05:24 MCHC 32.9 g/dL (32.0-36.0) 01/04/19 05:24 RDW 13.4 % (12.0-15.0) 01/04/19 05:24 Plt Count 136 10^3/uL (130-450) 01/04/19 05:24 MPV 10.5 fL (7.4-11.4) 01/04/19 05:24 Neut # (Auto) 5.1 10^3/uL (1.5-6.6) 01/04/19 05:24 Lymph # (Auto) 0.5 10^3/uL (1.5-3.5) L 01/04/19 05:24 [place] # (Auto) 0.3 10^3/uL (0.0-1.0) 01/04/19 05:24 Eos # (Auto) 0.0 10^3/uL (0.0-0.7) 01/04/19 05:24 Baso # (Auto) 0.0 10^3/uL (0.0-0.1) 01/04/19 05:24 Absolute Nucleated RBC 0.00 x10^3/uL 01/04/19 05:24 Nucleated RBC % 0.0 /100WBC 01/04/19 05:24 PT 13.9 secs (9.9-12.6) H 01/01/19 19:32 INR 1.2 (0.8-1.2) 01/01/19 19:32 APTT 28.3 secs (24.9-33.3) 01/01/19 19:32 Sodium 136 mmol/L (135-145) 01/04/19 05:24 Potassium 3.3 mmol/L (3.5-5.0) L 01/04/19 05:24 Chloride 101 mmol/L (101-111) 01/04/19 05:24 Carbon Dioxide 24 mmol/L (21-32) 01/04/19 05:24 Anion Gap 11.0 (6-13) 01/04/19 05:24 BUN 16 mg/dL (6-20) 01/04/19 05:24 Creatinine 1.1 mg/dL (0.6-1.2) 01/04/19 05:24 Estimated GFR (MDRD) 67 (>89) L 01/04/19 05:24 Glucose 137 mg/dL (70-100) H 01/04/19 05:24 Lactic Acid 1.8 mmol/L (0.5-2.2) 01/02/19 06:35 Calcium 8.5 mg/dL (8.5-10.3) 01/04/19 05:24 Total Bilirubin 0.7 mg/dL (0.2-1.0) 01/01/19 19:32 AST 28 IU/L (10-42) 01/01/19 19:32 ALT 25 IU/L (10-60) 01/01/19 19:32 Alkaline Phosphatase 64 IU/L (42-121) 01/01/19 19:32 Troponin I High Sens 11.3 pg/mL (2.3-19.7) 01/03/19 22:10 B-Natriuretic Peptide 90 pg/mL (5-100) 01/03/19 22:10 Total Protein 7.9 g/dL (6.7-8.2) 01/01/19 19:32 Albumin 4.8 g/dL (3.2-5.5) 01/01/19 19:32 Globulin 3.1 g/dL (2.1-4.2) 01/01/19 19:32 Albumin/Globulin Ratio 1.5 (1.0-2.2) 01/01/19 19:32 Lipase 30 U/L (22-51) 01/01/19 19:32 TSH 2.12 uIU/mL (0.34-5.60) 01/04/19 05:24 Thyroxine (T4) 4.80 ug/dL (6.09-12.23) L 01/04/19 05:24 Urine Color YELLOW 01/01/19 19:50 Urine Clarity CLEAR (CLEAR) 01/01/19 19:50 Urine pH 5.5 PH (5.0-7.5) 01/01/19 19:50 Ur Specific [place] 1.025 (1.002-1.030) 01/01/19 19:50 Urine Protein TRACE mg/dL (NEGATIVE) 01/01/19 19:50 Urine Glucose (UA) NEGATIVE mg/dL (NEGATIVE) 01/01/19 19:50 Urine Ketones 15 mg/dL (NEGATIVE) H 01/01/19 19:50 Urine Occult Blood TRACE-INTA (NEGATIVE) 01/01/19 19:50 Urine Nitrite NEGATIVE (NEGATIVE) 01/01/19 19:50 Urine Bilirubin NEGATIVE (NEGATIVE) 01/01/19 19:50 Urine Urobilinogen 0.2 (NORMAL) E.U./dL (NORMAL) 01/01/19 19:50 Ur Leukocyte Esterase NEGATIVE (NEGATIVE) 01/01/19 19:50 Ur Microscopic Review NOT INDICATED 01/01/19 19:50 Urine Culture Comments NOT INDICATED 01/01/19 19:50 Nasal Screen MRSA (PCR) NEGATIVE (NEGATIVE) 01/02/19 02:05 Last Dose Date UNKNOWN 01/03/19 17:22 Last Dose Time UNKNOWN 01/03/19 17:22 Vancomycin Trough 7.7 ug/mL (10.0-20.0) L 01/03/19 17:22 Sepsis Event Note (H) - Evaluation Current Stage of Sepsis: Sepsis Possible source of Sepsis: positive: Skin/soft tissue - Sepsis Criteria Sepsis Criteria: Suspected or Documented, Recorded Heart Rate greater than 90 bpm, SBP less than 90 mmHg ABX Reporting Has patient been on IV antibiotics over the past 48 hours?: Yes Current Medications - Current Medications Current Medications: Active Medications Acetaminophen (Tylenol) 650 mg PO Q4HR PRN PRN Reason: Pain 1 to 4 Last Admin: 01/03/19 22:59 Dose: 650 mg Celecoxib (Celebrex) 200 mg PO DAILY [facility] Last Admin: 01/05/19 08:45 Dose: 200 mg Enoxaparin Sodium (Lovenox) 40 mg SUBQ DAILY [facility] Last Admin: 01/05/19 08:45 Dose: 40 mg Sodium Chloride (Normal Saline 0.9%) 1,000 mls @ 0 mls/hr IV .Q0M [facility] Piperacillin Sod/Tazobactam (Sod 3.375 gm/ Sodium Chloride) 100 mls @ 200 mls/hr IV Q6H [facility] Last Admin: 01/05/19 14:23 Dose: 200 mls/hr Patient Own Med ( Mirabegron [ Myrbetriq] 50 Mg) 1 each PO DAILY [facility] Last Admin: 01/05/19 09:24 Dose: 1 each Polyethylene Glycol (Miralax) 17 gm PO DAILY [facility] Last Admin: 01/05/19 08:45 Dose: Not Given Ropinirole HCl (Requip) 3 mg PO Q4H [facility] Last Admin: 01/05/19 14:22 Dose: 3 mg Saccharomyces Boulardii (Florastor) 250 mg PO BIDWM [facility] Last Admin: 01/05/19 08:45 Dose: 250 mg Sodium Chloride (Normal Saline Flush 0.9%) 10 ml IVP PRN PRN PRN Reason: NEEDED PER PROVIDER ORDERS Last Admin: 01/04/19 18:49 Dose: 10 ml Sodium Chloride (Normal Saline Flush 0.9%) 10 ml IVP 0100,0900,1700 [facility] Last Admin: 01/05/19 08:45 Dose: 10 ml Celecoxib [Celebrex] 200 mg PO DAILY 01/01/19 Mirabegron [Myrbetriq] 50 mg PO DAILY 01/01/19 Ropinirole HCl 6 mg PO TID 01/01/19 Vardenafil HCl 20 mg PO PRN PRN 01/01/19
--- NOTE | 2019-01-04 17:19 | PROVIDER PROGRESS NOTE ---
Subjective - Prog Note Date Prog Note Date: 01/04/19 Prog Note Time: 17:09 - Subjective Pt reports feeling: Improved (Patient with a hx of chronic bilateral calf swelling liokely from venous insufficiecy presented in ED 3 days ago with a four day hx of left foot swelling and redness from a glass foreign body into left medial paracalcaneal area of foot. Initially just soaked foot. When foot worsen and fever occurred, he sought medical attention. ED did take out two glass slivers from hind foot and patient admitted for IV antibiotics. Foot has improved remarkably. He however has noticed left calf swelling more than usual with redness. But even the left calf has improved overf the past 24-36 hours. WBC and fever has come down as well.) Objective - Vital Signs/Intake & Output Vital Signs: Vital Signs x48h Temp Pulse Resp BP Pulse Ox 01/04/19 11:41 36.9 C 69 20 125/75 98 Intake & Output: Intake & Output 01/01/19 01/02/19 01/03/19 01/04/19 23:59 23:59 23:59 23:59 Intake Total 1500 5914.584 2450 1480 Output Total 1295 2800 1075 Balance 1500 4619.584 -350 405 - Lab Results Fish Bones: 01/04/19 05:24 01/04/19 05:24 Other Labs: Lab Results x24hrs 01/04/19 01/04/19 01/04/19 Range/Units 05:24 05:24 05:24 WBC 6.0 (4.8-10.8) x10^3/uL RBC 3.66 L (4.70-6.10) 10^6/uL Hgb 11.7 L (14.0-18.0) g/dL Hct 35.6 L (42.0-52.0) % MCV 97.3 H (80.0-94.0) fL MCH 32.0 H (27.0-31.0) pg MCHC 32.9 (32.0-36.0) g/dL RDW 13.4 (12.0-15.0) % Plt Count 136 (130-450) 10^3/uL MPV 10.5 (7.4-11.4) fL Neut # (Auto) 5.1 (1.5-6.6) 10^3/uL Lymph # (Auto) 0.5 L (1.5-3.5) 10^3/uL Centre # (Auto) 0.3 (0.0-1.0) 10^3/uL Eos # (Auto) 0.0 (0.0-0.7) 10^3/uL Baso # (Auto) 0.0 (0.0-0.1) 10^3/uL Absolute Nucleated RBC 0.00 x10^3/uL Nucleated RBC % 0.0 /100WBC Sodium 136 (135-145) mmol/L Potassium 3.3 L (3.5-5.0) mmol/L Chloride 101 (101-111) mmol/L Carbon Dioxide 24 (21-32) mmol/L Anion Gap 11.0 (6-13) BUN 16 (6-20) mg/dL Creatinine 1.1 (0.6-1.2) mg/dL Estimated GFR (MDRD) 67 L (>89) Glucose 137 H (70-100) mg/dL Calcium 8.5 (8.5-10.3) mg/dL Troponin I High Sens (2.3-19.7) pg/mL B-Natriuretic Peptide (5-100) pg/mL TSH 2.12 (0.34-5.60) uIU/mL Thyroxine (T4) 4.80 L (6.09-12.23) ug/dL Last Dose Date Last Dose Time Vancomycin Trough (10.0-20.0) ug/mL 01/03/19 01/03/19 01/03/19 Range/Units 22:10 22:10 17:22 WBC (4.8-10.8) x10^3/uL RBC (4.70-6.10) 10^6/uL Hgb (14.0-18.0) g/dL Hct (42.0-52.0) % MCV (80.0-94.0) fL MCH (27.0-31.0) pg MCHC (32.0-36.0) g/dL RDW (12.0-15.0) % Plt Count (130-450) 10^3/uL MPV (7.4-11.4) fL Neut # (Auto) (1.5-6.6) 10^3/uL Lymph # (Auto) (1.5-3.5) 10^3/uL Centre # (Auto) (0.0-1.0) 10^3/uL Eos # (Auto) (0.0-0.7) 10^3/uL Baso # (Auto) (0.0-0.1) 10^3/uL Absolute Nucleated RBC x10^3/uL Nucleated RBC % /100WBC Sodium (135-145) mmol/L Potassium (3.5-5.0) mmol/L Chloride (101-111) mmol/L Carbon Dioxide (21-32) mmol/L Anion Gap (6-13) BUN (6-20) mg/dL Creatinine (0.6-1.2) mg/dL Estimated GFR (MDRD) (>89) Glucose (70-100) mg/dL Calcium (8.5-10.3) mg/dL Troponin I High Sens 11.3 (2.3-19.7) pg/mL B-Natriuretic Peptide 90 (5-100) pg/mL TSH (0.34-5.60) uIU/mL Thyroxine (T4) (6.09-12.23) ug/dL Last Dose Date UNKNOWN Last Dose Time UNKNOWN Vancomycin Trough 7.7 L (10.0-20.0) ug/mL - Diagnostic Imaging Diagnostic Imaging Comments: US: shows no DVT or abscess in calf - Other Results/Comments Other Results/Comments: EXAM: Left calf : 2-3 + swollen, more than right side. Erythema as well. Somewhat tender calf but no flocculence. Left foot hindfoot: puncture healing nicely. Nontender; no drainage. N/V ok distally Sepsis Event Note (H) - Evaluation Current Stage of Sepsis: Sepsis Possible source of Sepsis: positive: Skin/soft tissue - Sepsis Criteria Sepsis Criteria: Suspected or Documented, Recorded Heart Rate greater than 90 bpm, SBP less than 90 mmHg Assessment/Plan - Problem List (1) Puncture wound of left foot excluding toes with complication Impression: Improved on antibiotics. With the persistent left calf swelling and redness, agree that obtaining an MRI scna of calf to rule out occult abscess would be useful. He is clinically improving though. Should MRI scan suggest a drainable abscess, will need to consult outside orthopedist as the hospiital is on divert without any ortho coverage until Thursday. Qualifiers: Encounter type: initial encounter Qualified Code(s): S91.332A - Puncture wound without foreign body, left foot, initial encounter
--- NOTE | 2019-01-04 20:12 | CONSULTATION NOTE ---
DATE OF SERVICE: 01/04/2019 Physician: Parish Liriano MD REFERRING PHYSICIAN: Rodriguez of the hospitalist service. CHIEF COMPLAINT: "My left foot had some glass in it." HISTORY OF PRESENT ILLNESS: The patient is a 63-year-old male with no known history for diabetes or recurrent infections, but has had a history of bilateral chronic calf swelling, likely due to venous insufficiency, who presented to the emergency room about 3-4 days ago with a 4-day history of progressive swelling, redness and fever to his left lower extremity. The patient is unclear of the details, but he apparently was walking barefoot about a week ago and may have stepped on some glass. He did not seek medical attention at that time, actually just did some warm soaks to his foot. His puncture wound did heal over and he initially felt better. About 2 days prior to his admission; however, he began noticing increasing swelling, redness in his foot and his calf on the left lower extremity. Also, developed a fever. He was subsequently evaluated in the emergency room and then admitted for IV antibiotics. During his emergency room workup, apparently, he had some x-rays that were suggestive of a foreign body in the area of his puncture wound in the hindfoot region. Under local anesthetic, the emergency room provider was able to open up his puncture wound and was able to fish out 2 glass shards according to the patient. Over the next 2-3 days, the patient has noted a marked improvement in his left leg infection. His wound is no longer draining and has been nontender and is nearly closed at this point. The first day or so after his admission, he noted progressive redness and swelling in that left calf, although in the last 24-36 hours this too has improved with less swelling, less pain according to the patient. Part of the patient's workup has shown serial CBCs, which initially were quite elevated, but today's date was down to normal range. The patient also initially had a mild fever but has also defervesced and has been afebrile for the last several days. We have been asked to evaluate the persistent calf swelling to see if anything further needed to be done. He has had an ultrasound to the calf, which has not shown any deep venous thromboses. No evidence of an abscess was seen. PHYSICAL EXAMINATION: The patient's left leg was inspected. His medial hindfoot puncture wound in the left foot is essentially healed at this point. This is nontender. There is no fluctuance and no drainage coming from the wound. The patient neurovascularly appears to be intact distally in the foot and toes. The left calf is more swollen than the right side beyond his normal chronic swelling. Does have some redness and warmth noted. No focal tenderness on palpation of the calf. No areas of fluctuance was noted. Ultrasound: As noted above. MRI scan of the leg - ordered, but has not been done. ASSESSMENT: Status post removal of glass foreign body from left hindfoot. On admission, he likely had a foot infection, which has responded well to the IV antibiotics. Also of note, however, he has had persistent ipsilateral left calf swelling and redness. Clinically, the patient feels as though the swelling has improved; however, in the last 24 hours. Also, since his admission, his mild fever has defervesced and he has been afebrile for the last several days. Also, his white count has continued to decrease down to normal levels at this point. PLAN: Have the patient continue with IV antibiotics to rule out an occult abscess or other collection in the calf that could be leading to the persistent symptoms. Would obtain an MRI scan to rule this out. Likely, he just has a persistent cellulitis in part due to the venous insufficiency that he has had along with the nidus of infection in the hindfoot that was noted earlier. Although the initial infection has responded well, he may have some persistent cellulitic presentation to the calf in view of his chronic insufficiency. Beginning tomorrow, there will be no orthopedic coverage here at the hospital until Thursday. If the patient's condition worsens or if the MRI scan is suggestive of a drainable abscess, consideration should be made for hospital transfer to a nearby facility that has orthopedic coverage. TD: 01/04/2019 17:40 MAXIMINO
[2019-01-05] MEDS: PIPERACILLIN/TAZOBACTAM 3.375 GM in SODIUM CHLORIDE 0.9% MINIBAG 100 ML IV SCH ×3 (01:49→20:28)
[2019-01-05] MEDS: rOPINIRole 1 MG TABLET PO SCH ×6 (01:50→21:25)
[2019-01-05] MEDS: SODIUM CHLORIDE FLUSH 0.9% 10 ML SYRINGE IVP SCH ×3 (01:57→16:57)
[2019-01-05 06:33] LABS: BASOPHILS % (AUTO) 0.4 %; EOSINOPHILS # (AUTO) 0.1 10^3/uL (0.0-0.7); EOSINOPHILS % (AUTO) 1.6 %; HGB - HEMOGLOBIN 11.1 g/dL (14.0-18.0); LYMPHOCYTES # (AUTO) 0.6 10^3/uL (1.5-3.5); LYMPHOCYTES % (AUTO) 11.1 %; MEAN CORPUSCULAR HEMOGLOBIN 31.7 pg (27.0-31.0); MEAN CORPUSCULAR HGB CONC 32.6 g/dL (32.0-36.0); MEAN CORPUSCULAR VOLUME 97.4 fL (80.0-94.0); MEAN PLATELET VOLUME 10.7 fL (7.4-11.4); MONOCYTES # (AUTO) 0.6 10^3/uL (0.0-1.0); NEUTROPHILS # (AUTO) 4.2 10^3/uL (1.5-6.6); NEUTROPHILS % (AUTO) 76.5 %; PLT - PLATELET COUNT 141 10^3/uL (130-450); RED CELL DISTRIBUTION WIDTH 13.5 % (12.0-15.0); WHITE BLOOD COUNT 5.5 x10^3/uL (4.8-10.8)
[2019-01-05 06:36] LABS: BUN - BLOOD UREA NITROGEN 14 mg/dL (6-20); CARBON DIOXIDE - CO2 27 mmol/L (21-32); CHLORIDE 104 mmol/L (101-111); GFR - MDRD 75 (>89); GLUCOSE 136 mg/dL (70-100); SODIUM 138 mmol/L (135-145); VANCOMYCIN,TROUGH 9.4 ug/mL (10.0-20.0)
[2019-01-05] MEDS: VANCOMYCIN INJ 1.5 GM in SODIUM CHLORIDE 0.9% 500 ML IV SCH (07:12)
[2019-01-05] MEDS ORDERED: PIPERACILLIN/TAZOBACTAM 4.5 GM in SODIUM CHLORIDE 0.9% MINIBAG 100 ML IV SCH (08:00)
[2019-01-05] MEDS: ENOXAPARIN 40 MG/0.4 ML SYRINGE SUBQ SCH (08:45)
[2019-01-05] MEDS: POLYETHYLENE GLYCOL 3350 17 GM PACKET PO SCH (08:45)
[2019-01-05] MEDS: CELECOXIB 100 MG CAPSULE PO SCH (08:45)
[2019-01-05] MEDS: SACCHAROMYCES BOULARDII 250 MG CAPSULE PO SCH ×2 (08:45→16:57)
[2019-01-05] MEDS: MIRABEGRON 50 MG PO SCH (09:24)
--- NOTE | 2019-01-05 14:43 | PROVIDER PROGRESS NOTE ---
Assessment/Plan - Problem List (1) Sepsis Assessment/Plan: 01/05 warmth and tender are significantly reduced. swell is reduced but still present MRI was ordered on yesterday 3pm with STAT, but so far, there is still no result yet. 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 blood culture positive for strep dysgalac continue Zosyn if continue improvement, plan d/c pt on tomorrow 01/04 continue swelling significantly with warmth. pt denies pain. pt had intact neurovascule examination at his left distal toes consult with Dr. Liriano for if pt has abscess, or other severe infection such as compartment syndrome or N/F. Dr. Liriano recommend MRI order US for abscess or DVT continue antibiotics Zosyn, will hold vancomycin according to sensitivity rise leg encourage pt walk Likely site/source is puncture wound on left heel. Vancomycin started in the ED. Pharmacy to dose. 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 IV hydration with normal saline Tylenol for fever (2)bacteremia 01/05 blood culture positive for strep dysgalac continue Zosyn, according to sensitivity study (3) Overactive bladder Conclusion/Plan: 01/04 stable, continue myrbetriq On myrbetriq (4) Parkinson disease Conclusion/Plan: stable, continue Ropinirole (5) hx of bilateral venous stasis right side is as his normal status with mild to moderate erythema, left side is now swelling, warmth, erythema. dorsalis pedis pause is normal Rise left leg treat underline infection with antibiotics - Current Meds Current Meds: Current Medications Generic Name Dose Route Start Last Admin Trade Name Freq PRN Reason Stop Dose Admin Acetaminophen 650 mg 01/02/19 00:50 01/03/19 22:59 Tylenol PO 650 mg Q4HR PRN Administration Pain 1 to 4 Celecoxib 200 mg 01/02/19 09:00 01/05/19 08:45 Celebrex PO 200 mg DAILY WALKER Administration Enoxaparin Sodium 40 mg 01/02/19 09:00 01/05/19 08:45 Lovenox SUBQ 40 mg DAILY WALKER Administration Piperacillin Sod/Tazobactam 100 mls @ 200 mls/hr 01/05/19 15:00 01/05/19 14:23 Sod 3.375 gm/ Sodium Chloride IV 200 mls/hr Q6H WALKER Administration Patient Own Med ( 1 each 01/03/19 09:00 01/05/19 09:24 Mirabegron [ PO 1 each Myrbetriq] 50 Mg) DAILY WALKER Administration Polyethylene Glycol 17 gm 01/02/19 09:00 01/05/19 08:45 Miralax PO Not Given DAILY WALKER Ropinirole HCl 3 mg 01/04/19 02:00 01/05/19 14:22 Requip PO 3 mg Q4H WALKER Administration Saccharomyces Boulardii 250 mg 01/03/19 08:00 01/05/19 08:45 Florastor PO 250 mg BIDWM WALKER Administration Sodium Chloride 10 ml 01/02/19 00:50 01/04/19 18:49 Normal Saline Flush 0.9% IVP 10 ml PRN PRN Administration NEEDED PER PROVIDER ORDERS Sodium Chloride 10 ml 01/02/19 01:00 01/05/19 08:45 Normal Saline Flush 0.9% IVP 10 ml 0100,0900,1700 WALKER Administration - Lab Result Fish Bone Diagrams: 01/05/19 06:20 01/05/19 06:20 - Additional Planning My Orders: My Active Orders 01/04/19 14:57 LOWER LEG (TIB-FIB) WO - LT [MRI] Stat 01/05/19 14:39 Miscellaenous Nursing Order [RC] QSHIFT 01/05/19 15:00 Piperacillin/Tazobactam [Zosyn] 3.375 gm Sodium Chloride 0.9% Minibag [Normal Saline 0.9% Minibag] 100 ml IV Q6H 01/06/19 05:00 BMP - BASIC METABOLIC PANEL [CHEM] DAILYLAB CBC - COMP BLD CT W/AUTO DIFF [HEME] DAILYLAB 01/07/19 05:00 BMP - BASIC METABOLIC PANEL [CHEM] DAILYLAB CBC - COMP BLD CT W/AUTO DIFF [HEME] DAILYLAB 01/08/19 05:00 BMP - BASIC METABOLIC PANEL [CHEM] DAILYLAB CBC - COMP BLD CT W/AUTO DIFF [HEME] DAILYLAB 01/09/19 05:00 BMP - BASIC METABOLIC PANEL [CHEM] DAILYLAB CBC - COMP BLD CT W/AUTO DIFF [HEME] DAILYLAB Subjective - Subjective Patient Reports: Feeling Better Objective Vital Signs: Vital Signs - 24 hr 01/04/19 01/04/19 01/04/19 17:00 20:40 23:48 Temperature 37.3 C 37.6 C H Heart Rate [ 83 72 85 Brachial] Respiratory 18 18 22 Rate Blood Pressure 122/59 L [Left Brachial artery] Blood Pressure 137/79 H 150/89 H [Right Brachial artery] O2 Saturation 97 98 94 01/05/19 01/05/19 01/05/19 05:00 08:16 11:42 Temperature 37.3 C 36.8 C 36.1 C L Heart Rate [ 70 69 67 Brachial] Respiratory 20 20 20 Rate Blood Pressure 125/59 L 136/80 H [Left Brachial artery] Blood Pressure 136/73 H [Right Brachial artery] O2 Saturation 94 99 98 Oxygen O2 Source Room air I&O (Last 24 Hrs): Intake and Output Totals x24h 01/03/19 01/04/19 01/05/19 23:59 23:59 23:59 Intake Total 2450 2640 1480 Output Total 2800 1375 775 Balance -350 1265 705 General: Alert, Oriented x3, No acute distress HEENT: PERRLA Neck: Supple Lymphatic: no adenopathy Neuro: Alert, Non Focal, Oriented Times 3 Cardiovascular: Regular rate Respiratory: Chest non-tender, No respiratory distress, Breath sounds nml Abdomen: Normal bowel sounds Extremities: Normal pulses, Other (swelling is reduced but still present. pt has no warmth, no tenderness with normal temperture on left leg) - Results Results: Laboratory Results WBC 5.5 x10^3/uL (4.8-10.8) 01/05/19 06:20 RBC 3.50 10^6/uL (4.70-6.10) L 01/05/19 06:20 Hgb 11.1 g/dL (14.0-18.0) L 01/05/19 06:20 Hct 34.1 % (42.0-52.0) L 01/05/19 06:20 MCV 97.4 fL (80.0-94.0) H 01/05/19 06:20 MCH 31.7 pg (27.0-31.0) H 01/05/19 06:20 MCHC 32.6 g/dL (32.0-36.0) 01/05/19 06:20 RDW 13.5 % (12.0-15.0) 01/05/19 06:20 Plt Count 141 10^3/uL (130-450) 01/05/19 06:20 MPV 10.7 fL (7.4-11.4) 01/05/19 06:20 Neut # (Auto) 4.2 10^3/uL (1.5-6.6) 01/05/19 06:20 Lymph # (Auto) 0.6 10^3/uL (1.5-3.5) L 01/05/19 06:20 [place] # (Auto) 0.6 10^3/uL (0.0-1.0) 01/05/19 06:20 Eos # (Auto) 0.1 10^3/uL (0.0-0.7) 01/05/19 06:20 Baso # (Auto) 0.0 10^3/uL (0.0-0.1) 01/05/19 06:20 Absolute Nucleated RBC 0.00 x10^3/uL 01/05/19 06:20 Nucleated RBC % 0.0 /100WBC 01/05/19 06:20 PT 13.9 secs (9.9-12.6) H 01/01/19 19:32 INR 1.2 (0.8-1.2) 01/01/19 19:32 APTT 28.3 secs (24.9-33.3) 01/01/19 19:32 Sodium 138 mmol/L (135-145) 01/05/19 06:20 Potassium 3.6 mmol/L (3.5-5.0) 01/05/19 06:20 Chloride 104 mmol/L (101-111) 01/05/19 06:20 Carbon Dioxide 27 mmol/L (21-32) 01/05/19 06:20 Anion Gap 7.0 (6-13) 01/05/19 06:20 BUN 14 mg/dL (6-20) 01/05/19 06:20 Creatinine 1.0 mg/dL (0.6-1.2) 01/05/19 06:20 Estimated GFR (MDRD) 75 (>89) L 01/05/19 06:20 Glucose 136 mg/dL (70-100) H 01/05/19 06:20 Lactic Acid 1.8 mmol/L (0.5-2.2) 01/02/19 06:35 Calcium 9.0 mg/dL (8.5-10.3) 01/05/19 06:20 Total Bilirubin 0.7 mg/dL (0.2-1.0) 01/01/19 19:32 AST 28 IU/L (10-42) 01/01/19 19:32 ALT 25 IU/L (10-60) 01/01/19 19:32 Alkaline Phosphatase 64 IU/L (42-121) 01/01/19 19:32 Troponin I High Sens 11.3 pg/mL (2.3-19.7) 01/03/19 22:10 B-Natriuretic Peptide 90 pg/mL (5-100) 01/03/19 22:10 Total Protein 7.9 g/dL (6.7-8.2) 01/01/19 19:32 Albumin 4.8 g/dL (3.2-5.5) 01/01/19 19:32 Globulin 3.1 g/dL (2.1-4.2) 01/01/19 19:32 Albumin/Globulin Ratio 1.5 (1.0-2.2) 01/01/19 19:32 Lipase 30 U/L (22-51) 01/01/19 19:32 TSH 2.12 uIU/mL (0.34-5.60) 01/04/19 05:24 Thyroxine (T4) 4.80 ug/dL (6.09-12.23) L 01/04/19 05:24 Urine Color YELLOW 01/01/19 19:50 Urine Clarity CLEAR (CLEAR) 01/01/19 19:50 Urine pH 5.5 PH (5.0-7.5) 01/01/19 19:50 Ur Specific [place] 1.025 (1.002-1.030) 01/01/19 19:50 Urine Protein TRACE mg/dL (NEGATIVE) 01/01/19 19:50 Urine Glucose (UA) NEGATIVE mg/dL (NEGATIVE) 01/01/19 19:50 Urine Ketones 15 mg/dL (NEGATIVE) H 01/01/19 19:50 Urine Occult Blood TRACE-INTA (NEGATIVE) 01/01/19 19:50 Urine Nitrite NEGATIVE (NEGATIVE) 01/01/19 19:50 Urine Bilirubin NEGATIVE (NEGATIVE) 01/01/19 19:50 Urine Urobilinogen 0.2 (NORMAL) E.U./dL (NORMAL) 01/01/19 19:50 Ur Leukocyte Esterase NEGATIVE (NEGATIVE) 01/01/19 19:50 Ur Microscopic Review NOT INDICATED 01/01/19 19:50 Urine Culture Comments NOT INDICATED 01/01/19 19:50 Nasal Screen MRSA (PCR) NEGATIVE (NEGATIVE) 01/02/19 02:05 Last Dose Date 01/03/09 01/05/19 06:20 Last Dose Time 0700 01/05/19 06:20 Vancomycin Trough 9.4 ug/mL (10.0-20.0) L 01/05/19 06:20 Sepsis Event Note (H) - Evaluation Current Stage of Sepsis: Sepsis Possible source of Sepsis: positive: Skin/soft tissue - Sepsis Criteria Sepsis Criteria: Suspected or Documented, Recorded Heart Rate greater than 90 bpm, SBP less than 90 mmHg ABX Reporting Has patient been on IV antibiotics over the past 48 hours?: Yes Current Medications - Current Medications Current Medications: Active Medications Acetaminophen (Tylenol) 650 mg PO Q4HR PRN PRN Reason: Pain 1 to 4 Last Admin: 01/03/19 22:59 Dose: 650 mg Celecoxib (Celebrex) 200 mg PO DAILY [facility] Last Admin: 01/05/19 08:45 Dose: 200 mg Enoxaparin Sodium (Lovenox) 40 mg SUBQ DAILY [facility] Last Admin: 01/05/19 08:45 Dose: 40 mg Sodium Chloride (Normal Saline 0.9%) 1,000 mls @ 0 mls/hr IV .Q0M [facility] Piperacillin Sod/Tazobactam (Sod 3.375 gm/ Sodium Chloride) 100 mls @ 200 mls/hr IV Q6H [facility] Last Admin: 01/05/19 14:23 Dose: 200 mls/hr Patient Own Med ( Mirabegron [ Myrbetriq] 50 Mg) 1 each PO DAILY [facility] Last Admin: 01/05/19 09:24 Dose: 1 each Polyethylene Glycol (Miralax) 17 gm PO DAILY [facility] Last Admin: 01/05/19 08:45 Dose: Not Given Ropinirole HCl (Requip) 3 mg PO Q4H [facility] Last Admin: 01/05/19 14:22 Dose: 3 mg Saccharomyces Boulardii (Florastor) 250 mg PO BIDWM [facility] Last Admin: 01/05/19 08:45 Dose: 250 mg Sodium Chloride (Normal Saline Flush 0.9%) 10 ml IVP PRN PRN PRN Reason: NEEDED PER PROVIDER ORDERS Last Admin: 01/04/19 18:49 Dose: 10 ml Sodium Chloride (Normal Saline Flush 0.9%) 10 ml IVP 0100,0900,1700 [facility] Last Admin: 01/05/19 08:45 Dose: 10 ml Celecoxib [Celebrex] 200 mg PO DAILY 01/01/19 Mirabegron [Myrbetriq] 50 mg PO DAILY 01/01/19 Ropinirole HCl 6 mg PO TID 01/01/19 Vardenafil HCl 20 mg PO PRN PRN 01/01/19
--- NOTE | 2019-01-05 16:56 | MRI Report ---
Reason: SEVERE INFECTION, IF ABSCESS OR N/F Procedure Date: 01/05/2019 Accession Number: [id number] / [id number] Procedure: MRI - Lower Leg (Tib-Fib) LT W/O CPT Code: 39363 FULL RESULT: EXAM: LEFT CALF/TIBIA MRI WITHOUT CONTRAST EXAM DATE: 01/05/2019 04:43 PM. CLINICAL HISTORY: Left leg swelling after stepping on glass.? Infection.? Abscess COMPARISON: None. TECHNIQUE: Multiplanar, multisequence T1-weighted and fluid-sensitive sequences of the calf/tibia without contrast. Other: None. FINDINGS: Bones: Marrow signal intensity appears normal. There is no appreciable marrow edema to suggest osteomyelitis. Joint Spaces: The ankle appears unremarkable. Tendons: The Achilles tendon is markedly thickened throughout its visible length, from the insertion proximally. It measures up to 12 mm in anteroposterior diameter. The thickening is fusiform, and suggestive of Achilles tendinosis. There is no appreciable tear. Musculature: There is moderate fatty atrophy of the gastrocnemius and soleus. The anterior and peroneal compartments appear normal. Other: There is severe subcutaneous edema involving the entire calf, worst in the anterior soft tissues. No discrete subcutaneous fluid collection can be identified to suggest an abscess, however there is no intravenous contrast. IMPRESSION: 1. Extensive subcutaneous edema of the calf, which may indicate inflammation. No intravenous contrast administered. No abscess identified. 2. Achilles tendinosis. Fatty atrophy of the posterior compartment muscles, including both gastrocnemius and soleus. RADIA
[2019-01-05] MEDS: ACETAMINOPHEN 325 MG TABLET PO PRN (17:21)
[2019-01-06] MEDS: SODIUM CHLORIDE FLUSH 0.9% 10 ML SYRINGE IVP SCH ×3 (03:48→18:44)
[2019-01-06] MEDS: rOPINIRole 1 MG TABLET PO SCH ×5 (03:48→18:44)
[2019-01-06] MEDS: PIPERACILLIN/TAZOBACTAM 3.375 GM in SODIUM CHLORIDE 0.9% MINIBAG 100 ML IV SCH ×3 (03:48→14:52)
[2019-01-06 05:48] LABS: BASOPHILS % (AUTO) 0.2 %; EOSINOPHILS # (AUTO) 0.2 10^3/uL (0.0-0.7); EOSINOPHILS % (AUTO) 2.7 %; LYMPHOCYTES # (AUTO) 0.7 10^3/uL (1.5-3.5); LYMPHOCYTES % (AUTO) 12.2 %; MEAN CORPUSCULAR HEMOGLOBIN 31.5 pg (27.0-31.0); MEAN CORPUSCULAR HGB CONC 32.8 g/dL (32.0-36.0); MEAN PLATELET VOLUME 10.8 fL (7.4-11.4); MONOCYTES # (AUTO) 0.6 10^3/uL (0.0-1.0); MONOCYTES % (AUTO) 11.2 %; NEUTROPHILS % (AUTO) 73.2 %; PLT - PLATELET COUNT 146 10^3/uL (130-450); RED BLOOD COUNT 3.49 10^6/uL (4.70-6.10); RED CELL DISTRIBUTION WIDTH 13.4 % (12.0-15.0); WHITE BLOOD COUNT 5.5 x10^3/uL (4.8-10.8)
[2019-01-06 05:57] LABS: CALCIUM 8.9 mg/dL (8.5-10.3)
[2019-01-06] MEDS: SACCHAROMYCES BOULARDII 250 MG CAPSULE PO SCH ×2 (09:18→18:44)
[2019-01-06] MEDS: CELECOXIB 100 MG CAPSULE PO SCH (10:08)
[2019-01-06] MEDS: POLYETHYLENE GLYCOL 3350 17 GM PACKET PO SCH (10:09)
[2019-01-06] MEDS: ENOXAPARIN 40 MG/0.4 ML SYRINGE SUBQ SCH (10:09)
[2019-01-06] MEDS: MIRABEGRON 50 MG PO SCH (10:11)
[2019-01-06] MEDS: SODIUM CHLORIDE FLUSH 0.9% 10 ML SYRINGE IVP PRN (14:53)
--- NOTE | 2019-01-06 15:51 | Discharge Plan ---
Discharge Plan Problem Reviewed?: Yes Disposition: Home, Self Care Condition: Stable Prescriptions: Levofloxacin [Levaquin] 750 mg PO DAILY #14 tablet Diet: Regular Activity Restrictions: Activity as Tolerated Shower Restrictions: No (fall precaution) Instruction Topics: Levofloxacin tablets Health Concerns: cellulitis and bacteremia Plan of Treatment: According to ID's recommendation, Levaquin is prescribed for you to finish the treatment course. please continue rise your leg and safely ambulate to reduce leg edema Care Goals: stabilization and improvement of your medical condition Assessment: assessment as the above Additional Instructions or Follow Up instructions: you may followup your PCP in one week, followup ID infection disease physician as out-pt. Should your symptoms return or worsen, you may present ER or call 911 for help. No Smoking: If you smoke, Please STOP! Call for help. Follow-up with: Tiago Garcia MD [Primary Care Provider] -
--- NOTE | 2019-01-06 16:02 | DISCHARGE SUMMARY ---
Discharge Summary Admit Date: 01/02/19 Discharge Date: 01/06/19 Discharging Provider: SELBY Primary Care Provider: Tiago Arriola Condition at Discharge: Stable Discharge Disposition: 01 Home, Self Care Discharge Facility Name: home - DIAGNOSES Admission Diagnoses: (1) Sepsis (2) Left Heel wound (3) Overactive bladder (4) Parkinson disease Discharge Diagnoses with Status of Each Condition: (1) Sepsis resloved. pt has no fever over 48 hours, normal WBC, hemodynamic stable. pt had fever, elevated WBC, tachycardia, cellulitis and left foot injury at the admission. Blood culture revealed positive strep dysgalac. After consulted with ID Dr. Ruiz, and review pt's studies with Dr. Ruiz, pt has Blood culture revealed positive strep dysgalac, blood culture sensitivity study reveals sensitive to all antibiotics in the study list, ECHO reveals no obvious vegetations identified, but subtle lesions can not be excluded. Dr. Ruiz recommended pt can be discharged to home with Levaquin 750 mg daily for 14 days. pt is prescribed for this meds (2)bacteremia stable. first Blood culture revealed positive strep dysgalac, second blood culture is no bacterial growth preliminary. After consulted with ID Dr. Ruiz, and review pt's studies with Dr. Ruiz, pt has Blood culture revealed positive strep dysgalac, blood culture sensitivity study reveals sensitive to all antibiotics in the study list, ECHO reveals no obvious vegetations identified, but subtle lesions can not be excluded. Dr. Ruiz recommended pt can be discharged to home with Levaquin 750 mg daily for 14 days. pt is prescribed for this meds pt was advised followup PCP and ID as out-pt (3) Overactive bladder stable (4) Parkinson disease stable (5) hx of bilateral venous stasis stable (6) left leg cellulitis improved. pt report his leg swelling is much improved, no pain, no tenderness. pt has intact distal neurovascular response. pt had significant reduced swelling, no tenderness, or warmth. pt has hx of venous stasis. pt was advised to rise his leg. pt was advised followup PCP and ID as out-pt - HPI History of Present Illness: refer Dr. Art's HPI on 01/02/19 Patient seen on 01/02/19 around 01:00am Patient is a 63 y/o male who presented to the Ed with complain of increasing pain in his left heel. He was at a wedding and had to leave and come to the ED because of the pain. 4 days ago he stepped on broken glass. Initially it was painful but then the site closed over, his pain subsided and he did not look into it any further until his presentation today. The site was explored in the ED for any potential abscess and non was found. However a piece of glass was removed. The patient was given a dose of vancomycin after blood cultures were drawn. He was in the process of being discharge with oral antibiotics when his SBP dropped to the 80's. He was tachycardic, mildly febrile and had a WBC of 11.4. As a result he was presented for admission for concern of septicemia. He denies chest pain, JEWELS, abd pain, nausea or vomiting. He has Parkinson's and the resting tremor associated with it. 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 - HOSPITAL COURSE Hospital Course: pt was admitted left leg cellulitis and left foot injury by juan alberto. pt had sepsis with fever, elevated WBC and tachycardia. pt had bacteremia in the initially blood culture. pt was treated with antibiotics Zosyn and Vancomycin. According blood culture sensitivity study, pt was switched to Zosyn. ID was called for d/c care. The detail hospital course is as the below 1) Sepsis resloved. pt has no fever over 48 hours, normal WBC, hemodynamic stable. pt had fever, elevated WBC, tachycardia, cellulitis and left foot injury. Blood culture revealed positive strep dysgalac. After consulted with ID Dr. Ruiz, and review pt's studies with Dr. Ruiz, pt has Blood culture revealed positive strep dysgalac, blood culture sensitivity study reveals sensitive to all antibiotics in the study list, ECHO reveals no obvious vegetations identified, but subtle lesions can not be excluded. Dr. Ruiz recommended pt can be discharged to home with Levaquin 750 mg daily for 14 days. pt is prescribed for this meds (2)bacteremia stable. first Blood culture revealed positive strep dysgalac, second blood culture is no bacterial growth preliminary. After consulted with ID Dr. Ruiz, and review pt's studies with Dr. Ruiz, pt has Blood culture revealed positive strep dysgalac, blood culture sensitivity study reveals sensitive to all antibiotics in the study list, ECHO reveals no obvious vegetations identified, but subtle lesions can not be excluded. Dr. Ruiz recommended pt can be discharged to home with Levaquin 750 mg daily for 14 days. pt is prescribed for this meds pt was advised followup PCP and ID as out-pt (3) Overactive bladder stable (4) Parkinson disease stable (5) hx of bilateral venous stasis stable (6) left leg cellulitis improved. pt report his leg swelling is much improved, no pain, no tenderness. pt has intact distal neurovascular response. pt had significant reduced swelling, no tenderness, or warmth. pt has hx of venous stasis. pt was advised to rise his leg. pt was advised followup PCP and ID as out-pt - ALLERGIES Allergies/Adverse Reactions: Allergies Allergy/AdvReac Type Severity Reaction Status Date / Time Sulfa (Sulfonamide Allergy Unknown Verified 01/01/19 19:02 Antibiotics) - MEDICATIONS Home Medications: Ambulatory Orders Medication Instructions Recorded Confirmed Celecoxib [Celebrex] 200 mg PO DAILY 01/01/19 01/02/19 Mirabegron [Myrbetriq] 50 mg PO DAILY 01/01/19 01/02/19 Ropinirole HCl 6 mg PO TID 01/01/19 01/02/19 Vardenafil HCl 20 mg PO PRN PRN 01/01/19 01/01/19 Levofloxacin [Levaquin] 750 mg PO DAILY #14 tablet 01/06/19 - PHYSICAL EXAM AT DISCHARGE General Appearance: positive: No acute distress, Alert. negative: Lethargic Eyes Bilateral: positive: Normal inspection, PERRL, No lid inflammation, Conjunctivae nml ENT: positive: ENT inspection nml, Pharynx nml, No signs of dehydration. negative: Purulent nasal drainage, Pharyngeal erythema, Oral lesions Neck: positive: Nml inspection, Thyroid nml, No JVD, Trachea midline. negative: Thyromegaly, Lymphadenopathy (R), Lymphadenopathy (L), Stiff neck, Swelling/bruising, Tracheal deviation Respiratory: positive: Chest non-tender, No respiratory distress, Breath sounds nml. negative: Wheezes, Rales, Rhonchi Cardiovascular: positive: Regular rate & rhythm, No murmur, No gallop. negative: Irregularly irregular, Extrasystoles, Tachycardia, Bradycardia, JVD present, Systolic murmur, Diastolic murmur Peripheral Pulses: positive: 2+ Abdomen: positive: Non-tender, No organomegaly, Nml bowel sounds, No distention. negative: Tenderness, Guarding, Rebound Back: positive: Nml inspection. negative: CVA tenderness (R), CVA tenderness (L) Skin: positive: Warm, Dry, Skin rash, Other (left leg still has erythema but reduced. leg still has mild swelling, but no tenderness or warmth. pt has intact distal toes neurovasular examination ). negative: Cyanosis, Diaphoresis, Pall or, Decubitus, Laceration (cm) Extremities: negative: Calf tenderness, Adrianne's sign/cords Neurologic/Psychiatric: positive: Oriented x3, Motor nml, Sensation nml. negative: Weakness, Sensory loss, Facial droop, Slurred/abnml speech, Depressed mood/affect - LABS Result Diagrams: 01/06/19 05:16 01/06/19 05:16 - SEPSIS Current Stage of Sepsis: Sepsis Possible source of Sepsis: Skin/soft tissue Sepsis Criteria: Suspected or Documented, Recorded Heart Rate greater than 90 bpm, SBP less than 90 mmHg - FOLLOW UP Follow Up: According to ID's recommendation, Levaquin is prescribed for you to finish the treatment course. please continue rise your leg and safely ambulate to reduce leg edema. you may followup your PCP in one week, followup ID infection disease physician as out-pt. Should your symptoms return or worsen, you may present ER or call 911 for help. - TIME SPENT Time Spent in Discharge (Minutes): 55
[2019-01-06 16:15] VITALS: BP 144/81
== END 2019-01-06 18:30 | disposition home or self-care (01) | DRG 872 ==
LOC: ED 18:50 → MS2 01-02 00:50
PROVIDERS: ADMIT Internal Medicine; ATTEND Nurse Practitioner Gerontology
DX: A40.8 Other streptococcal sepsis (principal); L03.116 Cellulitis of left lower limb; M79.5 Residual foreign body in soft tissue; L84 Corns and callosities; W25.XXXA Contact with sharp glass, initial encounter; W45.8XXA Other foreign body or object entering through skin, initial encounter; E86.0 Dehydration; G20 Parkinson's disease; N32.81 Overactive bladder; I87.8 Other specified disorders of veins; E87.6 Hypokalemia; H05.20 Unspecified exophthalmos; Z86.14 Personal history of Methicillin resistant Staphylococcus aureus infection; Z79.899 Other long term (current) drug therapy
CPT/HCPCS: 10120; 36415; 51701; 71045; 73718; 80048; 80053; 80202; 81003; 83605; 83690; 83880; 84436; 84443; 84484; 85025; 85610; 85730; 87040; 87077; 87181; 87640; 93005; 93306; 93971; 94640; 96361; 96365; 96366; 96375; 99285; A9270; J1650; J3370; 81001; 87086

== ENCOUNTER 2021-06-02 17:14 | Emergency (ER) | payer OTHER, MEDICARE ==
[2021-06-02 20:04] VITALS: BP 175/90
[2021-06-02] MEDS ORDERED: KETOROLAC 60 MG/2 ML VIAL IM STA (20:26)
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
== END 2021-06-02 20:37 | disposition home or self-care (01) ==
LOC: ED 17:14
DX: S16.1XXA Strain of muscle, fascia and tendon at neck level, initial encounter (principal); V49.49XA Driver injured in collision with other motor vehicles in traffic accident, initial encounter; Z87.891 Personal history of nicotine dependence
CPT/HCPCS: 96372; 99282; 99283

== ENCOUNTER 2021-06-17 08:00 | Outpatient (CLI) | payer OTHER, MEDICARE ==
--- NOTE | 2021-06-17 16:53 | XRAY Report ---
PROCEDURE: Cervical Spine 4 View INDICATIONS: NECK PAIN TECHNIQUE: 4 view(s) of the cervical spine were acquired. COMPARISON: None. FINDINGS: Bones: No fractures or dislocations to the T1 level. The lateral masses of C1 appear intact on the odontoid view. No suspicious bony lesions. Moderate to severe C3-4 and C5, C5 and C6 and C6-C7 and C 7-T1 degenerative disease. Mild C2-C3 and C3 on C4 degenerative disease. Moderate facet arthropathy n oted throughout the cervical spine. Soft tissues: No prevertebral soft tissue swelling. IMPRESSION: 1. Multilevel degenerative disc disease. 2. Multilevel facet arthropathy. 3. No fracture. No acute osseous lesion. If there is continued clinical concern for pathology, then M RI should be considered for further evaluation. Reviewed by: Clara Merlos MD, PhD on 06/17/2021 4:52 PM PDT Approved by: Clara Merlos MD, PhD on 06/17/2021 4:52 PM PDT Station ID: [id number]
== END 2021-06-17 23:59 | disposition home or self-care (01) ==
LOC: DI.S 08:00
PROVIDERS: ATTEND Registered Nurse
DX: M50.31 Other cervical disc degeneration, high cervical region (principal); M47.812 Spondylosis without myelopathy or radiculopathy, cervical region

== ENCOUNTER 2021-07-10 16:04 | Outpatient (CLI) | payer MEDICARE | END 2021-07-10 16:05 | disposition home or self-care (01) | LOC: LAB.S 16:04 | PROVIDERS: ATTEND Radiology Radiation Oncology | DX: C61 Malignant neoplasm of prostate (principal) | CPT/HCPCS: 36415; 84153 ==

== ENCOUNTER 2021-09-19 09:04 | Day surgery (SDC) | payer MEDICARE ==
[2021-09-19] MEDS ORDERED: LACTATED RINGERS 1,000 ML IV ONE (09:24)
--- NOTE | 2021-09-19 09:32 | ANESTHESIA ---
Pre-Anesthesia VS, & Labs - Diagnosis hx colon polyps - Procedure colonoscopy Vital Signs: Temp Pulse Resp BP Pulse Ox 36.4 C L 62 12 133/87 H 96 09/19/21 09:24 09/19/21 09:24 09/19/21 09:24 09/19/21 09:24 09/19/21 09:24 Height: 6 ft Weight (kg): 101.4 kg Body Mass Index: 30.3 BMI Classification: Obese - NPO >8 hours - Lab Results Lab results reviewed: Yes Home Medications and Allergies Celecoxib [Celebrex] 200 mg PO DAILY 01/01/19 Mirabegron [Myrbetriq] 50 mg PO DAILY 01/01/19 Ropinirole HCl 6 mg PO TID 01/01/19 Vardenafil HCl 20 mg PO PRN PRN 01/01/19 Allergies/Adverse Reactions: Allergies Allergy/AdvReac Type Severity Reaction Status Date / Time Sulfa (Sulfonamide Allergy Unknown Verified 09/19/21 09:34 Antibiotics) Anes History & Medical History - Medical History Cardiovascular: reports: None Pulmonary: reports: Other Gastrointestinal: reports: None Urinary: reports: Incontinence Neuro: reports: Parkinson's Musculoskeletal: reports: None Endocrine/Autoimmune: reports: None Blood Disorders: reports: None Skin: reports: Eczema Smoking Status: Former smoker - Surgical History Orthopedic: reports: Hip replacement, Other Exam General: Alert, Oriented x3, Cooperative Dental: WNL Neck Mobility: Normal Mallampati classification: II Thyromental Distance: 4-6 cm Respiratory: Lungs clear, Normal breath sounds, No respiratory distress Cardiovascular: Regular rate Neurological: Normal speech Mental/Cognitive Status: Alert/Oriented X3, Normal for patient Cognitive Status: Within normal limits Plan Anesthesia Type: Total IV Consent for Procedure(s) Verified and Reviewed: Yes Code Status: Attempt Resuscitation ASA classification: 2-Mild systemic disease Is this case an emergency?: No
[2021-09-19] MEDS ORDERED: PROPOFOL 500 MG/50 ML 500 MG/50 ML VIAL ONE (09:36)
[2021-09-19] MEDS ORDERED: LIDOCAINE-MPF 2% 5 ML VIAL ONE (09:36)
[2021-09-19] MEDS ORDERED: MIDAZOLAM 2 MG/2 ML VIAL ONE (10:03)
[2021-09-19] MEDS ORDERED: LACTATED RINGERS 450 ML IV ONE (10:15)
[2021-09-19 10:59] VITALS: BP 102/71
--- NOTE | 2021-09-19 13:00 | ANESTHESIA POST OP EVALUATION ---
Anesthesia Post Eval - Post Anesthesia Eval Vitals: Last Vital Signs Temp 36.3 C L 09/19/21 10:58 Pulse 69 09/19/21 10:58 Resp 16 09/19/21 10:58 BP 102/71 09/19/21 10:58 Pulse Ox 99 09/19/21 10:58 CV Function Including HR & BP: Stable Pain Control: Satisfactory Nausea & Vomiting: Negative Mental Status: Baseline Respiratory Status: Airway Patent Hydration Status: Satisfactory Anesthesia Complications: None
== END 2021-09-19 09:05 | disposition home or self-care (01) ==
LOC: SDS 09:04
PROVIDERS: ATTEND Surgery
PROC: 0DBN8ZX Excision of Sigmoid Colon, Via Natural or Artificial Opening Endoscopic, Diagnostic (ICD-10-PCS; principal; 2021-09-19 10:30)
DX: Z12.11 Encounter for screening for malignant neoplasm of colon (principal); K63.5 Polyp of colon; D12.5 Benign neoplasm of sigmoid colon; E66.9 Obesity, unspecified; Z68.31 Body mass index [BMI] 31.0-31.9, adult; Z79.899 Other long term (current) drug therapy; Z85.46 Personal history of malignant neoplasm of prostate; Z87.891 Personal history of nicotine dependence; Z92.3 Personal history of irradiation
CPT/HCPCS: 45380; J7120

== ENCOUNTER 2022-01-31 14:18 | Outpatient (CLI) | payer MEDICARE | END 2022-01-31 14:19 | disposition home or self-care (01) | LOC: LAB.S 14:18 | PROVIDERS: ATTEND Radiology Radiation Oncology | DX: Z08 Encounter for follow-up examination after completed treatment for malignant neoplasm (principal); Z85.46 Personal history of malignant neoplasm of prostate | CPT/HCPCS: 36415; 84153 ==

== ENCOUNTER 2022-03-20 07:22 | Day surgery (SDC) | payer MEDICARE ==
[2022-03-20] MEDS ORDERED: LACTATED RINGERS 1,000 ML IV ONE ×3 (07:54→09:49)
--- NOTE | 2022-03-20 08:33 | ANESTHESIA ---
Pre-Anesthesia VS, & Labs - Diagnosis history of polyps, screening exam - Procedure colonoscopy Vital Signs: Temp Pulse Resp BP Pulse Ox O2 Flow Rate 36.2 C L 72 12 127/83 H 97 03/20/22 07:48 03/20/22 07:48 03/20/22 07:48 03/20/22 07:48 03/20/22 07:48 Height: 6 ft Weight (kg): 97 kg Body Mass Index: 29.0 BMI Classification: Overweight - NPO >8 hours Home Medications and Allergies Home Medications: Ambulatory Orders Carbidopa/Levodopa [Carbidopa-Levodopa 25-100 Tab] 1 tab PO QID 03/19/22 Ropinirole HCl 6 mg PO TID 01/01/19 Vardenafil HCl 20 mg PO PRN PRN 01/01/19 Carbidopa/Levodopa [Carbidopa-Levodopa 25-100 Tab] 1 tab PO QID 03/19/22 Allergies/Adverse Reactions: Allergies Allergy/AdvReac Type Severity Reaction Status Date / Time Sulfa (Sulfonamide Allergy Unknown Verified 03/19/22 11:57 Antibiotics) Anes History & Medical History - Anesthetic History Anesthesia Complications: reports: No previous complications - Medical History Cardiovascular: reports: None Pulmonary: reports: Sleep apnea (reports he never did sleep study and does not snore) Gastrointestinal: reports: None Urinary: reports: Incontinence Neuro: reports: Parkinson's Musculoskeletal: reports: None Endocrine/Autoimmune: reports: None Blood Disorders: reports: None Skin: reports: Eczema Smoking Status: Former smoker Psychosocial: reports: Alcohol (2 drinks per day) History of Cancer?: Yes (prostate cancer s/p radiation) - Surgical History Orthopedic: reports: Hip replacement, Other Exam General: Alert, Oriented x3, Cooperative, No acute distress Dental: WNL Mouth Openin Fingerbreadth Neck Mobility: Normal Mallampati classification: III Thyromental Distance: 4-6 cm Mental/Cognitive Status: Alert/Oriented X3, Normal for patient Plan Anesthesia Type: Total IV Consent for Procedure(s) Verified and Reviewed: Yes Code Status: Attempt Resuscitation ASA classification: 2-Mild systemic disease Is this case an emergency?: No
--- NOTE | 2022-03-20 08:44 | HISTORY & PHYSICAL EXAMINATION ---
Chief Complaint - Chief Complaint Chief Complaint: here for colon cancer screening History of Present Illness - History Obtained From Records Reviewed: yes History obtained from: pt Exam Limitations: none - History of Present Illness HPI Comment/Other: history colon polyps and inadequate bowel prep History - Past Medical History Cardiovascular: reports: None Respiratory: reports: Sleep apnea (reports he never did sleep study and does not snore) Neuro: reports: Parkinson's Endocrine/Autoimmune: reports: None GI: reports: None : reports: Incontinence Psych: reports: None Musculoskeletal: reports: None Derm: reports: Eczema MRSA Hx?: Yes - Past Surgical History Ortho: reports: Hip replacement, Other - Family & Social History Family History: Brother: , Cancer (lymphoma) Family History Comment/Other: Parents are alive and in their 90's Social History Notes: He drinks occasional. He denies tobacco or illicit drug use - POLST Patient has POLST: No POLST Status: Full Code Meds/Allgy - Home Medications Home Medications: Ambulatory Orders Medication Instructions Recorded Confirmed Ropinirole HCl 6 mg PO TID 01/01/19 03/20/22 Vardenafil HCl 20 mg PO PRN PRN 01/01/19 03/19/22 Carbidopa/Levodopa 1 tab PO QID 03/19/22 03/20/22 [Carbidopa-Levodopa 25-100 Tab] - Allergies Allergies/Adverse Reactions: Allergies Allergy/AdvReac Type Severity Reaction Status Date / Time Sulfa (Sulfonamide Allergy Unknown Verified 03/19/22 11:57 Antibiotics) Review of Systems - Other Findings Other Findings: 10 pt ros as above otherwise unremarkable Exam - Vital Signs Reviewed Vital Signs: Yes Vital Signs: Vital Signs x48h Temp Pulse Resp BP Pulse Ox 03/20/22 07:48 36.2 C L 72 12 127/83 H 97 - Physical Exam General Appearance: positive: No acute distress, Alert Eyes Bilateral: positive: PERRL, EOMI, No scleral icterus ENT: positive: Pharynx nml Neck: positive: No JVD, Trachea midline Respiratory: positive: No respiratory distress Cardiovascular: positive: Regular rate & rhythm Abdomen: positive: Non-tender, No distention Neurologic/Psychiatric: positive: Oriented x3 Conclusion/Plan - Problem List (1) History of adenomatous polyp of colon Conclusion/Plan: plan colonoscopy. parq held and consent obtained
[2022-03-20] MEDS ORDERED: PROPOFOL 500 MG/50 ML 500 MG/50 ML VIAL ONE ×2 (08:54→12:14)
[2022-03-20] MEDS ORDERED: PROPOFOL 200 MG/20 ML VIAL IVP ONE (09:13)
[2022-03-20 09:58] VITALS: BP 102/67
--- NOTE | 2022-03-20 11:19 | ANESTHESIA POST OP EVALUATION ---
Anesthesia Post Eval - Post Anesthesia Eval Vitals: Last Vital Signs Temp 36.4 C L 03/20/22 09:42 Pulse 69 03/20/22 09:57 Resp 20 03/20/22 09:57 BP 102/67 03/20/22 09:57 Pulse Ox 100 03/20/22 09:57 O2 Flow Rate CV Function Including HR & BP: Stable Pain Control: Satisfactory Nausea & Vomiting: Negative Mental Status: Baseline Respiratory Status: Airway Patent Hydration Status: Satisfactory Anesthesia Complications: None
== END 2022-03-20 07:23 | disposition home or self-care (01) ==
LOC: SDS 07:22
PROVIDERS: ATTEND Surgery
PROC: 0DBL8ZZ Excision of Transverse Colon, Via Natural or Artificial Opening Endoscopic (ICD-10-PCS; principal; 2022-03-20 08:30)
DX: Z12.11 Encounter for screening for malignant neoplasm of colon (principal); D12.3 Benign neoplasm of transverse colon; K57.30 Diverticulosis of large intestine without perforation or abscess without bleeding; G47.30 Sleep apnea, unspecified; G20 Parkinson's disease; Z87.891 Personal history of nicotine dependence
CPT/HCPCS: 45380; 45385; J7120

== ENCOUNTER 2022-08-12 13:01 | Outpatient (CLI) | payer MEDICARE ==
[2022-08-12 19:46] LABS: BASOPHILS % (AUTO) 0.4 %; EOSINOPHILS # (AUTO) 0.1 10^3/uL (0.0-0.7); EOSINOPHILS % (AUTO) 1.4 %; HCT - HEMATOCRIT 39.8 % (42.0-52.0); HGB - HEMOGLOBIN 13.1 g/dL (14.0-18.0); LYMPHOCYTES # (AUTO) 0.6 10^3/uL (1.5-3.5); LYMPHOCYTES % (AUTO) 11.3 %; MEAN CORPUSCULAR HEMOGLOBIN 32.3 pg (27.0-31.0); MEAN CORPUSCULAR HGB CONC 32.9 g/dL (32.0-36.0); MONOCYTES # (AUTO) 0.5 10^3/uL (0.0-1.0); MONOCYTES % (AUTO) 9.3 %; NEUTROPHILS # (AUTO) 3.9 10^3/uL (1.5-6.6); NEUTROPHILS % (AUTO) 77.2 %; PLT - PLATELET COUNT 172 10^3/uL (130-450); RED BLOOD COUNT 4.06 10^6/uL (4.70-6.10); RED CELL DISTRIBUTION WIDTH 12.3 % (12.0-15.0); WHITE BLOOD COUNT 5.1 x10^3/uL (4.8-10.8)
[2022-08-12 20:16] LABS: ALBUMIN 4.4 g/dL (3.2-5.5); ALBUMIN/GLOBULIN RATIO 1.6 (1.0-2.2); ALKALINE PHOSPHATASE 55 IU/L (42-121); ALT ALANINE AMINOTRANSFERASE < 10 IU/L (10-60); AST ASPARTATE AMINOTRANSFERASE 22 IU/L (10-42); BILIRUBIN,TOTAL 0.8 mg/dL (0.2-1.0); BUN - BLOOD UREA NITROGEN 18 mg/dL (6-20); CALCIUM 9.1 mg/dL (8.5-10.3); CARBON DIOXIDE - CO2 26 mmol/L (21-32); CHLORIDE 106 mmol/L (101-111); CHOL/HDL RATIO 4.2 (<5.0); CHOLESTEROL 179 mg/dL; CREATININE 0.8 mg/dL (0.6-1.2); GFR - MDRD 96 (>89); GLUCOSE 107 mg/dL (70-100); HDL CHOLESTEROL 43 mg/dL; LDL CHOLESTEROL,CALCULATED 106 mg/dL; LDL/HDL RATIO 2.5 (<3.6); POTASSIUM 3.8 mmol/L (3.5-5.0); SODIUM 140 mmol/L (135-145); TOTAL PROTEIN 7.2 g/dL (6.7-8.2); TRIGLYCERIDES 149 mg/dL; VLDL CHOLESTEROL 30 mg/dL
[2022-08-12 20:21] LABS: THYROID STIMULATING HORMONE 1.71 uIU/mL (0.34-5.60)
== END 2022-08-12 13:02 | disposition home or self-care (01) ==
LOC: LAB.S 13:01
PROVIDERS: ATTEND Registered Nurse
DX: Z08 Encounter for follow-up examination after completed treatment for malignant neoplasm (principal); Z85.46 Personal history of malignant neoplasm of prostate; Z79.899 Other long term (current) drug therapy; Z13.220 Encounter for screening for lipoid disorders
CPT/HCPCS: 36415; 80053; 80061; 83721; 84153; 84443; 85025

== ENCOUNTER 2023-02-18 08:07 | Outpatient (CLI) | payer MEDICARE | END 2023-02-18 08:08 | disposition home or self-care (01) | LOC: LAB.S 08:07 | PROVIDERS: ATTEND Radiology Radiation Oncology | DX: Z08 Encounter for follow-up examination after completed treatment for malignant neoplasm (principal); Z85.46 Personal history of malignant neoplasm of prostate | CPT/HCPCS: 36415; 84153 ==

== ENCOUNTER 2023-08-27 10:13 | Outpatient (CLI) | payer MEDICARE | END 2023-08-27 10:14 | disposition home or self-care (01) | LOC: LAB 10:13 | PROVIDERS: ATTEND Radiology Radiation Oncology | DX: Z08 Encounter for follow-up examination after completed treatment for malignant neoplasm (principal); Z85.46 Personal history of malignant neoplasm of prostate | CPT/HCPCS: 36415; 84153 ==